=== PATIENT | female | born 1930 | race Caucasian/White ===

== ENCOUNTER 2016-12-27 16:03 | Inpatient (IN) | payer MEDICARE, OTHER ==
[~2016-12-27] VITALS: Ht 152.4 cm; Wt 63.5 kg
--- NOTE | ~2016-12-27 | ECHO ---
Transthoracic Echocardiography Report (TTE) Demographics Patient Name MINA CARDOSO Date of Study 12/29/2016 Patient Number [id number] Visit Number [id number] Date of 1930 Room Number G3201 [facility] [id number] Gender Female Number Age 86 year(s) Referring [place] Svetlana Melly Ski Tow Operator Cheri Rizzo RVT, Physician MARGO Watson Physician Interpreting Karie Holly MD Valve Machine Operator Physician Supervising Ordering Karie Holly MD, MD/MLP Physician Nurse Stress Grant Specialist Conclusions Contractility Score Summary Normal Left Ventricular contractility was noted. Summary The estimated left ventricular ejection fraction is 65-70%. Severe septal left ventricular hypertrophy with a sigmoid septum. Diastolic assessment reveals Grade I diastolic dysfunction. Mild LVOT gradient. The left atrium is moderately dilated. The interatrial septum appears aneurysmal. The right atrium is mildly dilated. Procedure Type of Study TTE procedure:2D Echocardiogram. Procedure Date Date: 12/29/2016 Start: 12:43 PM Study Location: Inpatient Portable Technical Quality: Adequate visualization Indications:Atrial fibrillation. Appropriate Use Criteria: 8 Patient Status: Routine Rhythm: NSR HR: 86 bpm BP: 111/58 mmHg M-Mode/2D Measurements LV Diastolic Dimension: 3.42 cm LV Systolic Dimension: 2.75 cm LV Septum Diastolic: 1.78 cm LV PW Diastolic: 0.95 cm AO Root Dimension: 2.4 cm Cardiac Output: 7.51 l/min AV Cusp Separation: 2 cm RV Diastolic Dimension: 2.97 cm LA volume: 56 ml LVOT: 1.9 cm RV Base: 2.8 cm LVOT VTI: 30.8 cm RV Mid: 2.86 cm LV Stroke volume: 87.28 ml TAPSE: 2.57 cm TDI-S': 19.3 cm/s Doppler Measurements AV Peak Velocity: 1.96 m/s MV Peak E-Wave: 0.83 m/s AV Peak Gradient: 15.37 mmHg MV Peak A-Wave: 1.06 m/s AV Mean Gradient: 11 mmHg MV E/A Ratio: 0.79 LVOT Peak Velocity: 1.84 m/s MV P1/2t: 87 msec TR Gradient:22.66 mmHg PV Peak Velocity: 1.36 m/s Estimated RAP:5 mmHg PV Peak Gradient: 7.4 mmHg Estimated RVSP: 28 mmHg Estimated PASP: 27.66 mmHg E' Septal Velocity: 0.06 m/s A' Septal Velocity: 0.15 m/s E' Lateral Velocity: 0.1 m/s A' Lateral Velocity: 0.26 m/s Findings Left Ventricle Severe septal left ventricular hypertrophy with a sigmoid septum. Diastolic assessment reveals Grade I diastolic dysfunction. Mild LVOT gradient. Right Ventricle Mild to moderately dilated right ventricle. Left Atrium Normal left atrial size. Right Atrium The right atrium is mild to moderately dilated. IVC measures 1.25 cm with inspiratory collapse. Mitral Valve Trivial mitral regurgitation by color Doppler. Mild calcification of the mitral valve. Aortic Valve The aortic valve is mildly sclerotic. Tricuspid Valve Normal tricuspid valve structure and function. Trivial tricuspid regurgitation by color Doppler. Pulmonic Valve Normal pulmonic valve structure and function. Pericardial Effusion No evidence of pericardial effusion. Miscellaneous Visualized portions of the aortic root and ascending aorta appear normal in size. Pleural Effusion No evidence of pleural effusion. Contractility Score LV regional wall motion:(0-Non visualized 1-Normal 2-Hypokinesis 3-Akinesis 4-Dyskinesis 5-Aneurysm) Signature dtt: Avni Tiwari (cardio) dtd: 12/29/16 1243 Physician Self Edit
--- NOTE | ~2016-12-27 | ER ---
PATIENT'S NAME: MINA CARDOSO [facility] AGE: 86 Y [address] ROOM: [place] [address] LOCATION: [facility] ADMIT DATE: 12/27/2016 ER/Outpatient Report DISCHARGE DATE: FAMILY PHYSICIAN: PHYSICIAN, UNKNOWN ATTENDING PHYSICIAN: Shirley QUINONEZ Time of Arrival: 1604 hours. Time of Evaluation: 1604 hours. CHIEF COMPLAINT: Fall. HISTORY OF PRESENT ILLNESS: The patient is an 86-year-old female, who presents to the emergency department today with a chief complaint of fall. She reports it was a ground level fall and hit back of her head against a table. She complains of some right leg pain; it is currently 5/10 in severity; at its max, it is 10/10 in severity; sharp; it is worse with movement. The patient denies any loss of consciousness. She denies any nausea or vomiting. No diarrhea or constipation. She is unsure exactly why she fell. PAST MEDICAL HISTORY: Osteopenia, dyslipidemia, hypertension, atrial fibrillation, arthritis, irritable bowel syndrome. PAST SURGICAL HISTORY: Bilateral total knee, hysterectomy, cholecystectomy, appendectomy, tonsillectomy, right rotator cuff, bilateral carpal tunnel, lysis of abdominal adhesions, 5 vaginal deliveries. SOCIAL HISTORY: The patient quit smoking in 2014. Smoked for 33 years. Drinks alcohol occasionally. Denies any illicit drug use. ALLERGIES: TO MORPHINE, OXYCODONE, AZITHROMYCIN, AND LORTAB. MEDICATIONS: 1. Aspirin 325 mg p.o. daily. 2. Baclofen 10 mg 1 tab 1 to 2 times daily as needed. 3. Calcium gluconate 500 mg once a day. 4. Diltiazem ER 120 mg daily. 5. Multaq 400 mg 2 times a day. 6. Meloxicam 7.5 mg 1 tab daily. 7. MiraLAX 1 cap daily. PATIENT'S NAME: MINA CARDOSO [facility] AGE: 86 Y [address] ROOM: [place] [address] LOCATION: [facility] ADMIT DATE: 12/27/2016 ER/Outpatient Report DISCHARGE DATE: FAMILY PHYSICIAN: PHYSICIAN, UNKNOWN ATTENDING PHYSICIAN: Shirley QUINONEZ 8. Ocuvite 1 daily. 9. Phenergan 25 mg 1/2 tab q.6 hours p.r.n. 10. Metamucil. 11. Evista 60 mg p.o. daily. 12. Tizanidine 2 mg p.o. t.i.d. p.r.n. 13. Tramadol 50 mg p.o. q.6 hours p.r.n. pain. PRIMARY CARE DOCTOR: In [place]. REVIEW OF SYSTEMS: All systems are reviewed by myself and are negative with the exception of those discussed in the HPI and past medical history. PHYSICAL EXAMINATION: VITAL SIGNS: Weight 65.5 kg, blood pressure 149/89, pulse 67, respiratory rate 16, temperature 98.8, oxygen saturation 100% on room air. GENERAL: The patient is an 86-year-old female, who appears stated age, in acute discomfort secondary to pain in her right leg. HEENT: Head: Normocephalic. Does have evidence of trauma with a 3.0 cm laceration to the right posterior occiput. It is gaping. Pupils are equal, round, and reactive to light. Extraocular motions are intact. Nares are patent bilaterally. TMs are clear. No hemotympanum. NECK: Supple. There is no midline tenderness to palpation. No step-offs or deformities. CARDIOVASCULAR: Regular rate and rhythm. No murmurs, rubs, or gallops. LUNGS: Clear to auscultation bilaterally. No wheezes, rales, or rhonchi. ABDOMEN: Soft, nontender, nondistended. No rebound, rigidity, or guarding. MUSCULOSKELETAL: The patient's right lower extremity is shortened and externally rotated. She is neurovascularly intact. 2/4 DP and PT pulses, which are equal bilaterally. There is no other bony tenderness to palpation noted. SKIN: The patient has a 3.0 cm laceration to the right posterior occiput. Otherwise, no rashes or lesions are noted. LABORATORY DATA AND X-RAYS: CT scan of the brain and C-spine are obtained. I have discussed results with the radiologist. There is no evidence of acute intracranial process. On the brain, there is atrophy noted. 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 EKG is obtained, is interpreted by myself at 1725 hours shows sinus rhythm with a rate of 72, normal axis, normal interval. No ST elevation, ST depression, T-wave inversions are noted. CBC is unremarkable. An x-ray of the femur, hip, and pelvis are obtained. It does show a distal right femur fracture at the distal third. It is closed. It is 100% displaced. PATIENT'S NAME: MINA CARDOSO [facility] AGE: 86 Y [address] ROOM: [place] [address] LOCATION: [facility] ADMIT DATE: 12/27/2016 ER/Outpatient Report DISCHARGE DATE: FAMILY PHYSICIAN: PHYSICIAN, UNKNOWN ATTENDING PHYSICIAN: Shirley QUINONEZ IMPRESSION: 1. Acute closed distal one-third femur fracture, oblique. 2. Ground-level fall. 3. 3.0 cm scalp laceration with staple repair. 4. Initial visit. EMERGENCY DEPARTMENT COURSE: The patient was brought back to the examination room. Seen and evaluated by myself. IV was established by EMS. Laboratory analysis and imaging are obtained as described above. The patient's wound is copiously irrigated with normal saline. It is evaluated. There are no evidence of foreign bodies. Staple repair is made. There is good cosmesis, good hemostasis. I have discussed results with the patient. I have recommended admission to the hospital for further evaluation, treatment, and management. I have contacted Dr. Jones, the patient's Orthopedic Surgery. He is out of town. I have contacted Dr. Acuña, who is on-call for Dr. Acuña. He does agree to accept the patient for further evaluation, treatment, and management. I have contacted the Hospitalist Service, Dr. Quinonez, who is on-call for the hospitalist service. He will preop as well. DISPOSITION: The patient is admitted under the care of Dr. Acuña as well as the Hospitalist Service in stable condition. DO EDILMA JOHNSON/deisi /[id number] d: 12/27/162327 t: 01/01/17 0843, OUTPATIENT REPORT
--- NOTE | ~2016-12-27 | CON ---
PATIENT'S NAME: MINA CEOLLO [facility] AGE: 86 Y [address] ROOM: [place] [address] LOCATION: [facility] ADMIT DATE: 12/27/2016 Consultation DISCHARGE DATE: FAMILY PHYSICIAN: PHYSICIAN, UNKNOWN ATTENDING PHYSICIAN: Shirley ROE DATE OF CONSULTATION: 12/27/2016 REFERRING PHYSICIAN: ROGELIO TRAN MD CHIEF COMPLAINT: Right thigh pain. HISTORY OF PRESENT ILLNESS: Ms. Coello is a pleasant 86-year-old female, who sustained an unwitnessed fall today. She complained of immediate right thigh pain. She is unable to bear weight. She contacted the emergency medical services and brought to the emergency room. She was diagnosed with a right distal third femur fracture. I was consulted for definitive orthopedic care. Currently, the patient reports aggravating factor as movement of the hip, range of motion, or attempted weightbearing. Alleviating factors include rest, ice, and immobilization. The patient reports a previous right total knee replacement by Dr. Jones in 2009, which has done well. She currently denies any constitutional symptoms such as fever, chills, or night sweats. She also denies any dizziness, chest pain, shortness of breath, blurred vision, nausea, vomiting, or diarrhea. REVIEW OF SYSTEMS: A 10-point review of systems was as otherwise mentioned above in the HPI. The patient's issue is musculoskeletal in nature. Her pain is at the right lower extremity. PAST MEDICAL HISTORY: Hypertension, osteoarthritis, and atrial fibrillation. PAST SURGICAL HISTORY: Includes a right total knee replacement by Dr. Jones in 2009. ALLERGIES: INCLUDE LORTAB, MORPHINE, OXYCODONE, AND AZITHROMYCIN. MEDICATIONS: Include: 1. Aspirin. 2. Baclofen. 3. Calcium gluconate. PATIENT'S NAME: MINA COELLO [facility] AGE: 86 Y [address] ROOM: [place] [address] LOCATION: [facility] ADMIT DATE: 12/27/2016 Consultation DISCHARGE DATE: FAMILY PHYSICIAN: PHYSICIAN, UNKNOWN ATTENDING PHYSICIAN: Shirley ROE 4. Diltiazem. 5. Dronedarone. 6. Meloxicam. 7. MiraLAX. 8. Ocuvite. 9. Phenergan. 10. Psyllium. 11. Raloxifene. 12. Tizanidine. 13. Tramadol. SOCIAL HISTORY: The patient has a history of smoking, but quit in 2014. She reports occasional alcohol use. Denies any illicit drug use. FAMILY HISTORY: Noncontributory. PHYSICAL EXAMINATION: GENERAL: The patient is awake, alert, and oriented x3. She is visibly in distraught because her thigh is in pain. She is actively conversing with me at the bedside. HEENT: Normocephalic and atraumatic. Extraocular movements are intact. PERRLA. Moist mucous membranes. Oropharyngeal airway is clear. NECK: Supple. Trachea is in the midline. CARDIOVASCULAR: Regular rate and rhythm. CHEST: Normal symmetric respirations observed bilaterally. ABDOMEN: Soft, nontender, and nondistended. PELVIS: Stable. VITAL SIGNS: Include a weight of 65.5 kg, blood pressure 149/89, pulse is 67, respiratory rate of 16, temperature 98.8, and 100% on room air. MUSCULOSKELETAL: Right lower extremity: Focal examination of the patient's right lower extremity reveals that she is grossly neurologically intact distally. Compartments of thigh, leg, and foot are soft. There is tenderness to palpation at the distal aspect of the right femur. There is a well-healed surgical incision on the anterior aspect of the knee consistent with previous knee replacement. There are palpable dorsalis pedal and posterior tibial pulses. There is good capillary refill in the toes. The patient is actively able to dorsiflex and plantar flex the ankle, though this does elicit some pain and spasms on the thigh. IMAGING: Plain radiographs of the right femur reveal evidence of a distal one-third femur fracture with 100% displacement and shortening. PATIENT'S NAME: MINA COELLO [facility] AGE: 86 Y [address] ROOM: [place] [address] LOCATION: [facility] ADMIT DATE: 12/27/2016 Consultation DISCHARGE DATE: FAMILY PHYSICIAN: PHYSICIAN, UNKNOWN ATTENDING PHYSICIAN: Shirley ROE LABORATORY VALUES: Include hemoglobin of 12.4, hematocrit of 37.2, white blood cell count of 7.5. Chemistry panel includes a sodium of 142, potassium 4.1, chloride of 109, CO2 of 26, anion gap of 11.1, glucose 128, calcium 8.7, BUN of 28, creatinine of 0.9, pre-albumin is 21. IMPRESSION: Right displaced and shortened distal one-third femur fracture. PLAN: I had a long discussion with the patient in the presence of her son regarding her right femur. I am recommending a right femoral intramedullary nailing procedure to stabilize the fracture. I discussed the risks, benefits, and alternatives pursuing surgical intervention with the patient in detail. I discussed the risks of anesthesia, infection, bleeding, and/or injury to neurovascular structures. They expressed understanding of this. Informed consent was obtained. We will plan for surgery as early as this evening. The patient is currently n.p.o. She will be bedrest for now. A Santos catheter has been placed. The hospitalist has been consulted for management of the patient's concomitant medical comorbidities. She is cleared from their standpoint. We will plan for surgery as soon as possible. MD JESSI FRAGOSO/modl /[id number] d: 12/28/16 0028 t: 12/28/16 0851, CONSULTATION REPORT
--- NOTE | ~2016-12-27 | CON ---
PATIENT'S NAME: MINA CARDOSO [facility] AGE: 86 Y [address] ROOM: [address] [address] LOCATION: [facility] ADMIT DATE: 12/27/2016 Consultation DISCHARGE DATE: FAMILY PHYSICIAN: PHYSICIAN, UNKNOWN ATTENDING PHYSICIAN: Shirley ROE REFERRING PHYSICIAN: ROGELIO TRAN MD IDENTIFYING INFORMATION: The patient is an 86-year-old lady from [place] who I was asked to see in consultation to assume primary care responsibilities for when she goes to [facility], scheduled for Sunday01/02/2017. CHIEF COMPLAINT: Fall with right distal femur fracture. HISTORY OF PRESENT ILLNESS: The patient is an 86-year-old who was at home and just walking in her house when she felt her right leg gave way and fell to the ground with severe pain in the right femur. She did hit the back of her head. Suffered a laceration. She utilized [employer] and was brought to the emergency room. She had the head laceration sutured. She subsequently underwent intramedullary nailing of the right femur on 12/27/[address] Tran. She has had a relatively uncomplicated recovery course in the hospital and scheduled to go to [facility] on Sunday. She did live at home and was able to perform all of her own ADLs prior to this event occurring. She is on several medications, some of them a little bit concerning and we talked about that. She also is wearing a neck brace and when asked about that she said that she has been wearing that for over a month, just to help with arthritis of her neck. I explained that is probably going to just make her neck weaker and she will plan on removing that and not using that and only use a soft collar as needed for a little while to transition out of that. PAST MEDICAL HISTORY: ILLNESSES: 1. Osteoporosis. 2. Paroxysmal atrial fibrillation, followed by Dr. Castillo. 3. Osteoarthritis, status post replacement of both knees. 4. Hypertension. 5. History of irritable bowel syndrome. SURGERIES: 1. Bilateral total knee arthroplasty. 2. Hysterectomy. 3. Cholecystectomy. 4. Appendectomy. PATIENT'S NAME: MINA CARDOSO [facility] AGE: 86 Y [address] ROOM: [address] [place], [place] [address] LOCATION: [facility] [place] ADMIT DATE: 12/27/2016 Consultation DISCHARGE DATE: FAMILY PHYSICIAN: PHYSICIAN, UNKNOWN ATTENDING PHYSICIAN: Sihrley ROE 5. Right rotator cuff repair. 6. Bilateral carpal tunnel syndrome. 7. Lysis of abdominal adhesions. 8. Left femur intramedullary lawrence for fracture 3 or 4 years ago. ALLERGIES: TO MORPHINE, OXYCODONE, AZITHROMYCIN, AND LORTAB. MEDICATIONS: On admission, 1. Aspirin 325 p.o. daily. 2. Baclofen 10 mg one tab 1-2 times a day as well as tizanidine 2 mg t.i.d. p.r.n., she says she took both of these on a daily basis. 3. Calcium 500 daily. 4. Diltiazem ER 120 mg daily. 5. Multaq 400 mg b.i.d. 6. Meloxicam 7.5 one tab daily. 7. MiraLAX one capsule daily. 8. Ocuvite one tab daily. 9. Phenergan 25 mg half a tab every 6 hours p.r.n. 10. Metamucil daily. 11. Evista 60 mg daily. 12. Tramadol 50 mg q.6 hours p.r.n. SOCIAL HISTORY: She is . She lives in [place] on a farm. She has been able to do all of her own ADLs prior to this injury and lives independently without any concerns. She quit smoking in 2014, has smoked for 33 years, half pack a day on average for approximately 16-pack year smoking history. REVIEW OF SYSTEMS: : No significant problems with incontinence. GI: No incontinence, just some constipation, may be related to the use of her muscle relaxants. She takes MiraLAX for that. PSYCH: No problems with depression. NEUROLOGIC: No problems with headaches and she is recovering well with a head laceration. No problems with dementia that she or her family have noticed. PULMONARY: She denies any problem with chronic cough or wheezing despite the smoking history. SKIN: Significant for laceration to the scalp and related to her right hip surgery. Otherwise review of systems negative. PERTINENT LABS: Hemoglobin is 9.5 when she came in, it dropped to a low of 6.1 and she is 7.5 when last checked. Has received some blood transfusions. Renal function PATIENT'S NAME: MINA CARDOSO [facility] AGE: 86 Y [address] ROOM: [address] [place] [address] LOCATION: [facility] [place] ADMIT DATE: 12/27/2016 Consultation DISCHARGE DATE: FAMILY PHYSICIAN: PHYSICIAN, UNKNOWN ATTENDING PHYSICIAN: Shirley ROE shows creatinine 0.6. Electrolytes normal. GFR greater than 60. Blood sugar was 93. PHYSICAL EXAMINATION: GENERAL: She is alert, oriented, and very engaging in conversation. She is wearing a neck brace, but took it off during our exam. HEAD: Healing scalp wound. EYES: PERRLA. EOMI. Sclerae nonicteric. EARS, NOSE, AND THROAT: Unremarkable. NECK: Just mild tenderness on posterior neck. She relates to arthritis. Normal carotid upstrokes. LUNGS: Diminished but otherwise clear. Normal effort. Heart is irregularly irregular at this time, but rate is controlled in the 80s. ABDOMEN: Soft, nontender. No appreciable masses. EXTREMITIES: Dressing of right hip clean and dry. Left leg unremarkable. No significant edema. NEUROLOGIC: Normal tone. No cogwheeling. ASSESSMENT/PLAN: 1. An 86-year-old, cognitively intact, very pleasant lady, who suffered a right distal femur fracture, status post intramedullary nailing on 12/27/2016. 2. She will be touch toe weightbearing at the start and then gradually increased per orthopedic recommendations and will need assistance with ADLs, it sounds like for at least 4-6 months. 3. Paroxysmal atrial fibrillation, managed by Dr. Castillo, currently not on anticoagulation other than aspirin. 4. Osteoporosis, is on Evista, but that can be stopped and we may need to talk about a more aggressive treatment. She says she has been on alendronate in the past. We will get those records eventually and then figure out the best appropriate treatment for osteoporosis. 5. Polypharmacy with concerning medications. We strongly recommend to stop tizanidine, baclofen, and meloxicam for her at her age and she is accepting of this. PLAN: She will assume primary care responsibilities when she goes to [place]. MD YSABEL BELLO/deisi PATIENT'S NAME: MINA CARDOSO [facility] AGE: 86 Y [address] ROOM: [place] [address] LOCATION: [facility] [place] ADMIT DATE: 12/27/2016 Consultation DISCHARGE DATE: FAMILY PHYSICIAN: PHYSICIAN, UNKNOWN ATTENDING PHYSICIAN: Shirley ROE /[id number] d: 12/31/16 1737 t: 01/05/17 1319, CONSULTATION REPORT
--- NOTE | ~2016-12-27 | OR ---
PATIENT'S NAME: MINA COELLO [facility] AGE: 86 Y [address] ROOM: [place] [address] LOCATION: [facility] ADMIT DATE: 12/27/2016 OR/Procedure Report DISCHARGE DATE: FAMILY PHYSICIAN: PHYSICIAN, UNKNOWN ATTENDING PHYSICIAN: Shirlye ROE SURGEON: Rogelio Tran MD CHANNELING MACHINE OPERATOR: None. DATE OF PROCEDURE: 12/27/2016 POSTOPERATIVE DIAGNOSIS: Right distal 1/3rd comminuted and displaced distal femur fracture. POSTOPERATIVE DIAGNOSIS: Right distal 1/3rd comminuted and displaced distal femur fracture. PROCEDURE: Right long femoral intramedullary nailing of distal 1/3rd femoral shaft fracture. ANESTHESIA: General endotracheal anesthesia. FLUIDS: See Anesthesia report. ESTIMATED BLOOD LOSS: 800 mL. SPECIMEN: None. COMPLICATIONS: None. TOURNIQUET: Stable in PACU. COUNTS: All counts correct. IMPLANTS: Synthes TFN-A 400 mm long 12-mm diameter femoral nail with proximal lag screw and 2 distal interlocking screws. INDICATIONS: Ms. Coello is a pleasant 86-year-old female who underwent the noted procedures above. The risks, benefits, and alternatives of pursuing surgical intervention were discussed with the patient in detail. She elected to proceed with surgery. Her son was also in agreement with this. I marked the right lower extremity indicating the correct surgical site. Anesthesia was consulted for their perioperative evaluation of the patient. The patient taken from the holding area to the operating room. A time-out was performed. General endotracheal anesthesia was administered. Antibiotics were administered for perioperative prophylaxis. PATIENT'S NAME: MINA COELLO [facility] AGE: 86 Y [address] ROOM: [place] [id number] LOCATION: [facility] ADMIT DATE: 12/27/2016 OR/Procedure Report DISCHARGE DATE: FAMILY PHYSICIAN: PHYSICIAN, UNKNOWN ATTENDING PHYSICIAN: Shirley ROE The patient was positioned on the [place] table with the leg in traction. A final time-out was performed. I introduced intraoperative fluoroscopy. I identified the fracture. I began at just proximal level of the greater trochanter. I placed a pin. I later confirmed with the fluoroscope that I was in the center-center position of the greater trochanter. I then made an incision proximal to the pin. I used my opening reamer to open up the femoral canal. At the fracture site, I made an incision to perform an open reduction and temporary internal fixation in order to pass the distal ball-tip guidewire. Once the guidewires passed, I confirmed its position fluoroscopically. The position was near anatomic. There was a total knee in place, which obscured the view of note. I then reamed up to a size 13.5 for a size 12 nail. I placed the femoral nail. I confirmed its position fluoroscopically. I began with 2 distal interlocking screws in the nail to achieve distal fixation at the fracture site. Once I achieved distal fixation, I attached a slap hammer to the proximal portion of the nail. I backslapped on the nail to achieve compression at the fracture site, which I was able to do. I then placed my lag screw proximally into the femoral neck to provide protection both to the femoral neck and to achieve proximal fixation. Final fluoroscopic images were taken revealing a successful open reduction and femoral intramedullary nailing of a comminuted distal 1/3rd femur fracture. The surgical incisions were copiously irrigated with normal sterile saline solution and closed in layers. Sterile Mepilex dressings were placed on the incisions. The patient was then transferred from the [place] table onto the hospital bed and extubated. She was brought to recovery room in stable condition. There were no intraoperative complications noted. IMPRESSION: The patient is status post the noted procedures above. PLAN: The patient will be toe-touch weightbearing on the right lower extremity. She will be encouraged to rest, ice, and elevate the leg going forward. A Mepilex dressing will be p.r.n. Postoperative antibiotics will be per routine. Physical Therapy and Occupational Therapy will be consulted for early ambulation and prevention of deconditioning. The hospitalist will manage the patient's concomitant medical comorbidities. DVT prophylaxis will be in the form of Lovenox. I will continue to monitor the patient closely in PATIENT'S NAME: MINA COELLO [facility] AGE: 86 Y [address] ROOM: [place] [address] LOCATION: [facility] ADMIT DATE: 12/27/2016 OR/Procedure Report DISCHARGE DATE: FAMILY PHYSICIAN: PHYSICIAN, UNKNOWN ATTENDING PHYSICIAN: Shirley ROE the postoperative period. ROGELIO C MD JESSI TRAN/modl /[id number] d: 12/28/16 0147 t: 12/28/16 0856, OPERATIVE SUMMARY
--- NOTE | ~2016-12-27 | DS ---
PATIENT'S NAME: MINA CARDOSO [facility] AGE: 86 Y [address] ROOM: [address] [address] LOCATION: [facility] ADMIT DATE: 12/27/2016 Discharge Summary DISCHARGE DATE: 01/02/2017 FAMILY PHYSICIAN: Physician, Unknown ATTENDING PHYSICIAN: Devi Watson PRIMARY DIAGNOSES: 1. Right femur fracture. 2. Acute blood loss anemia. 3. Paroxysmal atrial fibrillation with rapid ventricular response. 4. Leukocytosis. 5. Orthostatic hypotension. 6. Chronic conditions include essential hypertension and osteoarthritis. PRINCIPAL PROCEDURE: Done for the patient includes intramedullary nailing of the right femur and also transfusion to the patient with 4 units of packed red blood cells, LABORATORY DATA: On admission, WBC was 7.5, highest level obtained was 20.2, prior to discharge was 10.7; H and H on admission were 12.4 and 37.2, lowest level obtained was 6.1 and 18.4 prior to discharge was 8.2 and 26.6; platelet on admission was 262, was stable throughout the hospital stay; prior to discharge was 200. Sodium on admission was also 142, was stable throughout the hospital stay, prior to discharge was 140; potassium on admission was 4.1, was also stable throughout the hospital stay, prior to discharge was 3.8; bicarb was stable throughout the hospital stay at 24; creatinine was stable throughout the hospital stay, 0.9 upon admission, prior to discharge was 0.6. UA, leukocytes negative, nitrite negative, wbc 2 to 5, bacteria moderate. RADIOLOGY DATA: Chest x-ray is reported as cardiac enlargement. No vascular congestion or confluent parenchymal infiltrate identified on supine frontal chest study. X-ray of the pelvis is reported as no acute bone fracture identified at the pelvis or hips. Metallic hardware is in place at the proximal left femur, degenerative changes at the hips, bone osteopenia and vascular calcifications noted. CT of the head without contrast, no acute hemorrhage or midline shift. Generalized atrophic changes. No skull fracture identified on the bone- windowed images. CT cervical, linear lucency across the base of the odontoid with slight posterior displacement and posterior angulation of the odontoid relative to the C2 body. There is bone sclerosis and cyst formation at the odontoid with PATIENT'S NAME: MINA CARDOSO [facility] AGE: 86 Y [address] ROOM: [id number] [place], [place] [address] LOCATION: [facility] ADMIT DATE: 12/27/2016 Discharge Summary DISCHARGE DATE: 01/02/2017 FAMILY PHYSICIAN: Physician, Unknown ATTENDING PHYSICIAN: Devi Watson fusion between anterior arch of C1 and the body of C2, overall appearance favors old injury. HOSPITAL COURSE: For history of present illness, please take a look at the H and P, which was done by Dr. Quinonez. The patient was admitted to the Neurotrauma Unit. By the next day, she was taken into the OR for the intramedullary nailing of her fractured right femur. Procedure was well tolerated by the patient without intra or postop complication. Postop, the patient did develop some leukocytosis, which was thought to be reactive; however, this improved with her hospital stay and had returned to normal prior to discharge. Postop, she did also develop some postop acute blood loss anemia, which was attributed to be secondary to the femur fracture. So, she was transfused with a total of 4 units of PRBC during her hospital stay. She did also develop some chronic atrial fibrillation with rapid ventricular response. For this, we did get a Cardiology consult, and we were wondering reason why the patient was not on any anticoagulation for her chronic atrial fibrillation. After the cardiology team had visited with the patient, she reported that she would rather discuss with the aeronautical research engineer, Dr. Gilma Richards, as to whether to be on anticoagulation or not. Thereafter, for the chronic atrial fibrillation with RVR, she was put on Cardizem drip, which was weaned off, and her rate medications were also modified by the Cardiology team, and thereafter, she would slip back into atrial fibrillation, however, rate controlled. On the morning of discharge, she did complain of some dizziness and nausea when she was put up to stand, and orthostatic vital signs, which were obtained were positive, so she was bolused with 500 mL of normal saline with appropriate response, and thereafter, her repeat orthostatic vital signs were stable, and she was asymptomatic, and so she was discharged to the [facility]. MEDICATIONS ON DISCHARGE: 1. Aspirin 325 mg p.o. daily. 2. Calcium 500 mg p.o. daily. 3. Cardizem 120 mg p.o. daily. 4. Multaq 400 mg p.o. twice daily. 5. MiraLAX 17 g p.o. daily. 6. Lovenox 40 mg subcu total of 30 days DVT prophylaxis. 7. Baclofen 10 mg p.o. twice daily p.r.n. 8. Psyllium natural fiber 3 capsules p.o. daily. 9. Phenergan 12.5 mg p.o. q.6 hours p.r.n. 10. Milk of magnesia 30 mL p.o. daily p.r.n. 11. Ocuvite 1 tablet p.o. daily. 12. Evista 60 mg p.o. daily. 13. Tizanidine 2 mg p.o. 3 times daily p.r.n. Discharge time spent on this patient is approximately 35 minutes, which included coordination, discharge planning with the respiratory care faculty team. PATIENT'S NAME: MINA CARDOSO [facility] AGE: 86 Y [address] ROOM: [place] [address] LOCATION: [facility] ADMIT DATE: 12/27/2016 Discharge Summary DISCHARGE DATE: 01/02/2017 FAMILY PHYSICIAN: Physician, Unknown ATTENDING PHYSICIAN: Devi Watson HOLLY BECKMAN MD ODO/modl /[id number] d: 01/03/17 0126 t: 01/07/17 1619, DISCHARGE SUMMARY
--- NOTE | ~2016-12-27 | HP ---
PATIENT'S NAME: MINA CARDOSO [facility] AGE: 86 Y [address] ROOM: [address] [address] LOCATION: [facility] ADMIT DATE: 12/27/2016 History & Physical DISCHARGE DATE: FAMILY PHYSICIAN: PHYSICIAN, UNKNOWN ATTENDING PHYSICIAN: Shirley ROE DATE OF SERVICE: CHIEF COMPLAINT: Right femur fracture. HISTORY OF PRESENT ILLNESS: The patient is an 86-year-old female with a past medical history of osteoarthritis and AFib who presents here with right femur fracture after a fall. The patient reports that she was on the phone when she had a mechanical fall. The patient was able to call [facility] and then was brought in by EMS. In evaluation in the emergency department, the patient was found to have right humeral fracture. The patient reports that she has had hip fracture and femur fracture in the past and her last surgery was done 3 years ago and has not had any complication or surgery in the past. The patient also had laceration of the head and has had issac done in the ED. The patient currently denies chest pain, shortness of breath, abdominal pain, nausea, vomiting, fever, and chills. The patient's only complaint is right lower extremity pain. The patient lives by herself and is fairly active and is able to do her activities of daily life without cardiac limitation. PAST MEDICAL HISTORY: AFib, osteoarthritis. PAST SURGICAL HISTORY: Knee surgery, hip surgery, and femur surgery in the past. FAMILY HISTORY: Son has diabetes mellitus type 2. SOCIAL HISTORY: The patient lives by herself. She has a history of smoking, but currently does not smoke. MEDICATIONS: See MAR. REVIEW OF SYSTEMS: All systems have been reviewed and are negative except for what I mentioned in the HPI. PATIENT'S NAME: MINA CARDOSO [facility] AGE: 86 Y [address] ROOM: [address] [address] LOC[facility]: [facility] ADMIT DATE: 12/27/2016 History & Physical DISCHARGE DATE: FAMILY PHYSICIAN: PHYSICIAN, UNKNOWN ATTENDING PHYSICIAN: Shirley ROE PHYSICAL EXAMINATION: VITAL SIGNS: Temperature 98.9, blood pressure 149/89, heart rate 67, respiratory rate 16, and satting 100% on room air. GENERAL APPEARANCE: The patient is in mild distress due to right lower extremity pain. HEAD: The patient has laceration on the back and has issac. EYES: Extraocular muscle intact. No discharge. NOSE: No nasal discharge. EARS: No ear discharge MOUTH: Moist oral cavity. HEART: Irregularly irregular. No murmurs, rubs, or gallops. CHEST: Clear to auscultation bilaterally. ABDOMEN: Soft, nontender, nondistended. Bowel sounds present. EXTREMITIES: Shortened right lower extremity. Distal pulses present. No edema present. SKIN: Warm to touch. DESK MONITOR: The patient is alert and oriented. Motor and sensory grossly intact. LABORATORY DATA: 1. Sodium 142, potassium of 4.1, chloride 109, CO2 of 26, blood glucose 128, and creatinine 0.9. White blood cell count of 7.5, hemoglobin 12.4, and platelets of 262. 2. EKG shows atrial fibrillation with a rate of 67. 3. CT head shows no acute hemorrhage or midline shift. No skull fractures noted. 4. CT chest, not read yet, but appears shows no cardiopulmonary process. 5. CT cervical shows old injury at the base of the odontoid, reinjury at site of old fractures also differential per Radiology report; however, the patient reports that she has had a neck fracture in the past. ASSESSMENT AND PLAN: 1. right femur fracture. The patient is an 86-year-old with history of osteoarthritis and atrial fibrillation who presents here with mechanical fall with right femur fracture. The patient has greater than 4 METs, the patient is very active at home, and does not have any limitations in terms of cardiac and pulmonary with activity. The patient denies any shortness of breath, orthopnea, lower extremity edema, and history of cardiac disease. The patient has a moderate risk factor of surgery. However, there are no further investigation needed that can change the course of the surgery. The patient is stable for the surgery. The patient clearly understands the risk factor. The patient accepts the risk factors and is willing to have the surgery due to continuous pain that she is suffering currently. The patient is scheduled for surgery this p.m. Discussed assessment with the patient and Dr. Acuña. PATIENT'S NAME: MINA CARDOSO [facility] AGE: 86 Y [address] ROOM: [address] [place] [address] LOCATION: [facility] ADMIT DATE: 12/27/2016 History & Physical DISCHARGE DATE: FAMILY PHYSICIAN: PHYSICIAN, UNKNOWN ATTENDING PHYSICIAN: Shirley ROE 2. Atrial fibrillation on rate control on Multaq and Cardizem and to continue Multaq and Cardizem. The patient denies also history of being on anticoagulation. She is currently on aspirin. We will continue aspirin for now and to have discussion during this stay about anticoagulation. 3. Pain management. Pain should somewhat resolve after surgery. Pain management per Orthopedics. Greater than 60 minutes spent on the patient care, greater than 50% of that spent in direct patient consultation, and consultation with Dr. Acuña. We will admit the patient as inpatient and the patient is stable for surgery. The patient is scheduled to have surgery this evening. We will follow the patient after surgery. MD ENRICO CARPENTER/moderick /[id number] D: [id number] T: [id number] HISTORY & PHYSICAL
[2016-12-27 17:13] LABS: BASOPHIL % 0.3 %; EOSINOPHIL # 0.1 K/uL (0.0-0.5); EOSINOPHIL % 1.3 %; HEMATOCRIT 37.2 % (30.0-46.0); HEMOGLOBIN 12.4 g/dL (10.0-15.0); IMMATURE GRANULOCYTE % 0.3 %; LYMPHOCYTE # 1.4 K/uL (0.8-4.0); LYMPHOCYTE % 18.3 %; MCHC 33.3 gm/dL (32.0-36.5); MCV 96.1 fl (83.0-98.0); MONOCYTE # 0.8 K/uL (0.0-1.0); MONOCYTE % 10.7 %; MPV 9.6 fl (9.4-12.4); NEUTROPHIL # (ANC) 5.2 K/uL (1.8-7.8); NEUTROPHIL % 69.1 %; NRBC % 0 /100WBC (0-0.00); PLATELET COUNT 262 K/uL (150-450); RDW-CV 12.7 % (11.9-14.6); WBC 7.5 K/uL (4.0-11.0)
[2016-12-27 17:14] LABS: RBC 3.87 M/uL (3.00-5.00)
[2016-12-27 17:25] LABS: INR - (THERAPEUTIC) 0.96 (0.92-1.07); PROTIME 10.1 SECONDS (9.8-11.4); PTT 24 SECONDS (25-32)
[2016-12-27 17:31] LABS: ALBUMIN 3.7 gm/dL (3.5-5.0); ANION GAP 11.1 (10.0-19.0); CALCIUM 8.7 mg/dL (8.5-10.5); CREATININE 0.9 mg/dL (0.5-1.1); PHOSPHORUS 3.1 mg/dL (2.5-4.9); POTASSIUM 4.1 mMol/L (3.7-5.1)
[2016-12-27 18:25] LABS: BILIRUBIN URINE NEGATIVE (NEGATIVE); BLOOD URINE 25 /UL (NEGATIVE); COLOR URINE YELLOW (YELLOW); GLUCOSE URINE NEGATIVE (NEGATIVE); KETONE URINE NEGATIVE (NEGATIVE); LEUKOCYTES URINE NEGATIVE /UL (NEGATIVE); NITRITE URINE NEGATIVE (NEGATIVE); PROTEIN URINE NEGATIVE (NEGATIVE); TURBIDITY URINE CLEAR (CLEAR); UROBILINOGEN URINE NORMAL (NORMAL)
[2016-12-27 18:46] LABS: AMORPHOUS URINE 3+ (NEGATIVE); BACTERIA URINE MODERATE (NEGATIVE); MUCUS URINE 1+ (NEGATIVE)
[2016-12-27] MEDS ORDERED: CALCIUM GLUC500 MG PO (19:37)
[2016-12-27] MEDS ORDERED: ASPIRIN325 MG PO (19:37)
[2016-12-27] MEDS ORDERED: LIORESAL10 MG PO (19:37)
[2016-12-27] MEDS ORDERED: DILTIAZEM ER120 M2 PO (19:38)
[2016-12-27] MEDS ORDERED: MELOXICAM7.5 MG PO (19:39)
[2016-12-27] MEDS ORDERED: MIRALAX PO527 GM/BOT PO (19:39)
[2016-12-27] MEDS ORDERED: MULTAQ400 MG PO (19:39)
[2016-12-27] MEDS ORDERED: OCUVITE WITH L1 EACH PO (19:40)
[2016-12-27] MEDS ORDERED: PHENERGAN25 M1 PO (19:40)
[2016-12-27] MEDS ORDERED: NATURAL FIBER0.52 GM PO (19:41)
[2016-12-27] MEDS ORDERED: EVISTA60 MG PO (19:41)
[2016-12-27] MEDS ORDERED: TRAMADOL HCL50 MG PO (19:42)
[2016-12-27] MEDS ORDERED: TIZANIDINE HCL2 MG PO (19:42)
--- NOTE | 2016-12-28 02:03 | NUR ---
Patient arrived on floor from OR following a R) hip nailing. Patient accompainied to the floor and was able to assist with data base 1 patient is alert and oriented x3 just drowsy from surgery. Patient fell at home. She was able to use her life line to call for help. The patient hit the back of her head when she fell. CT of head was negative. [place] placed to laceration of head on arrival to ER.
--- NOTE | 2016-12-28 02:46 | NUR ---
Significant Event: A&Ox3. Denies N&T. Had right femoral nailing done during the night came up to floor at 2335. Neuro checks to be done on RLE Q2HR for 24hrs. Pedal pulse slightly thready to R) able to wiggle toes without complications. Pain under control with tordol. Has lilli meplex drsg with lilli wrap and knee immobilizer to R) leg. Drsg C/D/I. On tele SR. VSS. Did have temp of 95 in PACU. SBP in low 100 to upper 90s. One unit of blood given in OR due to EBL. On 4L of O2 sats in low 90s. Lungs C&D. Regular diet. Pt was very nautious after surgery has not had anything but water since. IV to L) AC running D5 1/2 with 20meq of KCL at 125ml/hr can SL when taking fluids well. Follow up:
[2016-12-28 04:28] LABS: HEMOGLOBIN 9.5 g/dL (10.0-15.0); MCV 95.4 fl (83.0-98.0); MPV 9.9 fl (9.4-12.4); RBC 3.06 M/uL (3.00-5.00)
[2016-12-28 04:29] LABS: HEMATOCRIT 29.2 % (30.0-46.0); MCHC 32.5 gm/dL (32.0-36.5); PLATELET COUNT 198 K/uL (150-450); RDW-CV 15.5 % (11.9-14.6); WBC 20.2 K/uL (4.0-11.0)
[2016-12-28 05:26] LABS: ABSOLUTE NEUTROPHIL CT (ANC) 18.6 K/uL (1.8-7.8); BANDED NEUTROPHIL # 1.2 K/uL (0.0-0.1); BANDED NEUTROPHILS % 6 %; LYMPHOCYTE # 0.8 K/uL (0.8-4.0); LYMPHOCYTE % 4 %; MONOCYTE # 0.8 K/uL (0.0-1.0); SEGMENTED NEUTROPHIL # 17.4 K/uL (1.8-7.8); SEGMENTED NEUTROPHIL % 86 %
--- NOTE | 2016-12-28 13:48 | NUR ---
Introduced self and CM role to Angélica and her son, Smooth who was at bedside. Angélica tells me that prior to this, she was living at home, alone, in [place] and upon discharge, she anticipates that she will need some skilled care. Prior to coming into [facility], she was doing all of her own medications at home and getting around without any assistive devices. She sees' GARY Gonzalez at the [facility] and gets her medications filled through the local pharmacy, [facility]. Angélica has been at [facility] in [place] before for a prior post hospitalization stay and would like to go back there if they would accept her. She currently has a son that lives there as a prison resident. I let her and son know that I would make a referral to Reina at [facility] and then see if/when they could accept. I did talk with Angélica and son about the Medicare 3 night qualifying stay criteria vs going to the SNF on private pay. At this time, if she is cleared for dismissal tomorrow by and the hospitalists, she will only have 2 inpt. nights, thus making her self pay at the SNF. IF she is not ready tomorrow for dismissal, then we would look at early next week before she would go to the SNF since it is a Sunday tomorrow and she would then have her 3 overnight stays needed to qualify for SNF being covered by Medicare and her supplement. I let her and her son know it would depend on what doctors felt was needed, but to be preparing for the fact that she might be ready to go tomorrow and it would be a self pay situation. Told them once I had more direction from doctors and when I knew what Reina had open for beds at the SNF, I would update them and we would go from there. Both were fine with this plan. I gathered information, faxed it over to Reina at the [facility] and also left her a VM as well re:the referral. Have not heard back from her yet on if/when they could take. Will try to review her chart later to see if more MDs have rounded on her to see if they have given clear indication on when she would be ready to go to SNF. Plan to update her and son later today or early tomorrow. Cherelle' cell #[phone]. CM to continue to follow and assist.
--- NOTE | 2016-12-28 20:16 | NUR ---
Significant Event: PT ALERT AND ORIENTED X3. CSM INTACT TO R)LEG/FOOT. ABLE TO WIGGLE TOES TO R)FOOT. IMMOBILIZER INTACT TO R)LEG; MEPILEX DRESSING CHANGED X1 DUE TO BEING SATURATED; NO DRAINAGE NOTED SINCE DRESSING WAS CHANGED AT 1300. TOE-TOUCH WEIGHT BEARING TO R)LEG. TRANSFERS WITH 2-ASSIST/PIVOT/GAIT/BELT/WALKER. SAT IN THE CHAIR FOR SEVERAL HOURS TODAY. VITAL SIGNS STABLE; ON ROOM AIR. DID HAVE AN EMESIS AFTER LUNCH AND THREW UP HER SOUP; PO PHENERGAN GIVEN AT 1317, WITH RELIEF. PRN ULTRAM HAS BEEN HELPING WITH PAIN. TAKES MEDICATIONS WHOLE WITH WATER. GUANAKO D/C'D AT 1745. L)CALF PUMP ON. IV TO L)AC SALINE LOCKED; DRINKING PO FLUIDS WELL. NO BM THIS SHIFT. Follow up: CONTINUE TO MONITOR; PLACEMENT?
[2016-12-29 05:50] LABS: BASOPHIL % 0.1 %; IMMATURE GRANULOCYTE # 0.1 K/uL (0.0-0.3); IMMATURE GRANULOCYTE % 0.8 %; LYMPHOCYTE # 1.2 K/uL (0.8-4.0); MCV 94.4 fl (83.0-98.0); MONOCYTE # 1.6 K/uL (0.0-1.0); MPV 10.2 fl (9.4-12.4); NEUTROPHIL # (ANC) 10.2 K/uL (1.8-7.8); NEUTROPHIL % 78.1 %; NRBC % 0 /100WBC (0-0.00); RDW-CV 15.7 % (11.9-14.6); WBC 13.1 K/uL (4.0-11.0)
[2016-12-29 05:57] LABS: HEMATOCRIT 18.4 % (30.0-46.0); HEMOGLOBIN 6.1 g/dL (10.0-15.0); MCH 31.3 pg (27.0-34.0); MCHC 33.2 gm/dL (32.0-36.5); PLATELET COUNT 139 K/uL (150-450); RBC 1.95 M/uL (3.00-5.00)
[2016-12-29 05:58] LABS: ANION GAP 11.8 (10.0-19.0); CREATININE 0.9 mg/dL (0.5-1.1); MAGNESIUM 2.3 mg/dL (1.8-2.6); POTASSIUM 4.8 mMol/L (3.7-5.1)
[2016-12-29 06:03] LABS: CALCIUM 7.4 mg/dL (8.5-10.5)
--- NOTE | 2016-12-29 06:42 | NUR ---
Significant Event: A/Ox3. Numbness to right hand and patient states she has due to carpal tunnel. Mepilex dressing to hip c/d/i with lilli wrap and immobilizer. 1L O2 NC. Unable to stand at bedside with nurses. Denies pain or nausea throughout shift. IV to L)AC. Systolic blood pressure 98-103. Unable to void tonight after catheter removal. Call physician if bladder scan above 300ml. (188ml bladder scan at 0345). Wears Levy-J collar. [place] to posterior head c/d/i. Follow up:
--- NOTE | 2016-12-29 12:09 | NUR ---
Call from Reina at [facility], cell [phone] - office [phone], she tells me that they are willing to accept Angélica but they won't be able to accept until Tuesday 01/02 as it is a holiday weekend and Sunday they won't have the pharmacy access to fill her medications that are needed for her. I let her know that this was fine. Packet started, orders printed, ID Screen done and in the chart. Dr. Guardado was up on the floor reviewing her information so I updated him to the above, he was fine with this plan. Updated son, Smooth, as well, he was in agreement too. Angélica was with nursing getting blood so I didn't talk with her but her son said that he would update her and if she had questions he would let me know and I would come back. RN to RN number was left on the front of the chart for nursing to call on Sunday. Fax cover letter left on the chart with fax number so nursing could fax orders on Sunday as well. Reina was going to check with Dr. Grijalva (certified court/medical interpreter at SNF) to see if he would be willing to watch Angélica while she was there since her doctor she sees' is a PA. If he was willing to accept, Reina would have him stop up and see her before Sunday. Reina was also going to check on a MD at [facility] who followed Angélica last time she was there as well so they had a back up option to Dr. Gracia. No other questions, needs or concerns. CM to continue to follow and assist. Plan SNF on Sunday for therapies with the goal of returning back home.
--- NOTE | 2016-12-29 16:31 | NUR ---
ULTRA HIGH FALL RISK Significant Event: A/O X3, TTWB RLE, mepilex x2 intact w/ old drng, lilli wrap/immobilizer to RLE, CSM intact, 2 assist pivot, full lift used by nursing. 2 units PRBC for HGB 6.1, L)AC IV, episode of AFIB today (HR 140) then return to , hx AFIB, cardiology consulted. issac D/I to back of head, unable to void, st.cath @ 1445. BM today. takes diet well. [place]-J on for comfort from arthritis. Follow up: place antoine if unable to void and bladder scan >500
[2016-12-30 07:09] LABS: BASOPHIL % 0.1 %; EOSINOPHIL % 0.1 %; HEMATOCRIT 24.2 % (30.0-46.0); HEMOGLOBIN 8.1 g/dL (10.0-15.0); IMMATURE GRANULOCYTE # 0.1 K/uL (0.0-0.3); IMMATURE GRANULOCYTE % 0.6 %; LYMPHOCYTE # 1.6 K/uL (0.8-4.0); LYMPHOCYTE % 13.1 %; MCH 30.2 pg (27.0-34.0); MCHC 33.5 gm/dL (32.0-36.5); MCV 90.3 fl (83.0-98.0); MONOCYTE # 1.6 K/uL (0.0-1.0); MONOCYTE % 13.5 %; MPV 10.1 fl (9.4-12.4); NEUTROPHIL # (ANC) 8.7 K/uL (1.8-7.8); NEUTROPHIL % 72.6 %; NRBC % 0.6 /100WBC (0-0.00); PLATELET COUNT 133 K/uL (150-450); RBC 2.68 M/uL (3.00-5.00); RDW-CV 15.7 % (11.9-14.6)
[2016-12-30 07:24] LABS: ANION GAP 12.1 (10.0-19.0); BLOOD UREA NITROGEN 20 mg/dL (6-24); CALCIUM 7.4 mg/dL (8.5-10.5); CHLORIDE 106 mMol/L (96-110); CO2 26 mMol/L (22-32); CREATININE 0.6 mg/dL (0.5-1.1); ESTIMATED GFR (MDRD EQUATION) > 60; MAGNESIUM 2.2 mg/dL (1.8-2.6); POTASSIUM 4.1 mMol/L (3.7-5.1); SODIUM 140 mMol/L (135-145)
--- NOTE | 2016-12-30 07:32 | NUR ---
Significant Event: A/Ox3. 2A full lift for transfers. VSS. Ultram given x1 for pain tonight. Phenergan given x1 for c/o nausea. Voids without difficulty and no antoine needed. Joni wrap, mepilex, and immobilizer c/d/i to left lower extremity. Follow up: [facility] sunday
--- NOTE | 2016-12-30 15:42 | NUR ---
UP INTO THE CHAIR AND ONTO THE COMMODE WITH THE [facility]. LIFT. MEPILEX DRESSING, DAVID WRAP, AND KNEE IMMOBILIZER TO RIGHT LEG C/D/I. ALERT AND ORIENTED TIMES 3. C/O NUMBNESS TO RIGHT HAND BUT STATES THIS IS NOT NEW. HARD COLLAR ON PRN FOR COMFORT, SHE HAS WORN IT MOST OF THE DAY. HAD A BM TODAY. HAD A LARGE EMESIS THIS MORNING ANG GOT PHENERGAN 12.5 MG PO FOR IT AND HAS HAD NO NAUSEA SINCE. VOIDING WITHOUT DIFFICULTY. WILL TRANSFER TO THE [facility] ON SUNDAY.
--- NOTE | 2016-12-30 16:46 | NUR ---
Significant Event: PT TRANSFERED TO MSU FROM NTU AT 1600. PT ALERT AMD ORIENTED. RESTS QUIETLY IN THE BED AT THIS TIME. DENIES PAIN. 02 OFF AT PRESENT TIME. LIFT TO TRANSFER TO COMMODE OR RECLINER. VOIDS WELL. BM TODAY. PLEASANT AND COOPERTIVE. WEARS [place] J COLLAR FOR COMFORT. DAVID WRAP WITH IMMOBILIZER ON RT LEG. MEPILEX TO HIP TELE FOR A-FIB. Follow up:
--- NOTE | 2016-12-30 17:16 | NUR ---
TRANSFERED FROM NTU TO NHU AT 1600. PT DENIES PAIN. RESTS QUIETLY IN THE BED.IMMOBILIZER ON RT LRG. DRESSING INTACT. OFF 02 AT PRESENT TIME. PLEASANT AND COOPERTIVE.
--- NOTE | 2016-12-31 04:36 | NUR ---
Significant Event: Patient is TTWB, but uses a full lift. Denies pain. On room air. Dressing has old drainage. CSM WNL. Immobilizer on. Voids without difficulty. Wears [place] J for comfort. On telemetry with no calls. Follow up:
[2016-12-31 05:12] LABS: BASOPHIL % 0.2 %; EOSINOPHIL % 0.2 %; HEMATOCRIT 22.5 % (30.0-46.0); IMMATURE GRANULOCYTE # 0.1 K/uL (0.0-0.3); LYMPHOCYTE # 1.7 K/uL (0.8-4.0); LYMPHOCYTE % 14.2 %; MCH 30.4 pg (27.0-34.0); MCHC 33.3 gm/dL (32.0-36.5); MCV 91.1 fl (83.0-98.0); MONOCYTE # 1.6 K/uL (0.0-1.0); MONOCYTE % 13.1 %; MPV 10.1 fl (9.4-12.4); NEUTROPHIL # (ANC) 8.5 K/uL (1.8-7.8); NEUTROPHIL % 71.3 %; NRBC % 0.3 /100WBC (0-0.00); PLATELET COUNT 151 K/uL (150-450); RBC 2.47 M/uL (3.00-5.00); WBC 11.9 K/uL (4.0-11.0)
[2016-12-31 05:17] LABS: HEMOGLOBIN 7.5 g/dL (10.0-15.0)
--- NOTE | 2016-12-31 08:10 | NUR ---
PT SCREENED D/T LOS. EST NEEDS: [id number] KCALS, 63-76 GM PROTEIN, 1 ML/KCAL FLUIDS. INTAKE GOOD. NOT AT RISK. WILL ASSIST NEEDED.
[2016-12-31 11:28] LABS: CPK 393 IU/L (21-215)
--- NOTE | 2016-12-31 16:07 | NUR ---
Significant Event: pt alert and oriented. up in the recliner with 2 assist. stand pivot transfer. can use lift if needed. voids per bedpan or commode. large bm today. had some lt sided chest pain this noon and cardiac workup done but is normal. tele on, tacky at times. hx a-fib. ultram for pain this am. refused meds this afternoon. immobilizer to lt leg. pt is to stop wearing [place] j collar. vitals stable. [facility] on sunday. Follow up:
--- NOTE | 2017-01-01 04:38 | NUR ---
Significant Event: Gave 1 unit of blood. Voids without difficulty. On tele with no calls. TTWB. 2 assist pivot. On room air. Hypotensive, but better. Dressing has old dried blood to hip. Immobilizer. Denies pain[facility] Follow up:
[2017-01-01 05:42] LABS: BASOPHIL % 0.2 %; EOSINOPHIL # 0.1 K/uL (0.0-0.5); EOSINOPHIL % 1.2 %; HEMATOCRIT 26.3 % (30.0-46.0); HEMOGLOBIN 8.9 g/dL (10.0-15.0); IMMATURE GRANULOCYTE # 0.2 K/uL (0.0-0.3); IMMATURE GRANULOCYTE % 1.5 %; LYMPHOCYTE # 1.9 K/uL (0.8-4.0); LYMPHOCYTE % 17.5 %; MCH 30.8 pg (27.0-34.0); MCHC 33.8 gm/dL (32.0-36.5); MONOCYTE # 1.3 K/uL (0.0-1.0); MONOCYTE % 11.7 %; MPV 9.8 fl (9.4-12.4); NEUTROPHIL # (ANC) 7.5 K/uL (1.8-7.8); NEUTROPHIL % 67.9 %; NRBC % 0 /100WBC (0-0.00); PLATELET COUNT 179 K/uL (150-450); RBC 2.89 M/uL (3.00-5.00); RDW-CV 14.7 % (11.9-14.6)
[2017-01-01 05:47] LABS: ANION GAP 12.8 (10.0-19.0); BLOOD UREA NITROGEN 19 mg/dL (6-24); CALCIUM 7.8 mg/dL (8.5-10.5); CHLORIDE 107 mMol/L (96-110); CO2 24 mMol/L (22-32); CREATININE 0.6 mg/dL (0.5-1.1); ESTIMATED GFR (MDRD EQUATION) > 60; POTASSIUM 3.8 mMol/L (3.7-5.1); SODIUM 140 mMol/L (135-145)
--- NOTE | 2017-01-01 16:57 | NUR ---
Significant Event: Pivot transfers with one assist, walker and gaitbelt. Maintain TTWB to R) leg. Immobilizer at all times. Dressings with old drainage. Denies pain, refuses offers of pain medication. Voids per bedside commode, need encouragement to get up and use the commode instead of the bedpan. Tele, no calls. Plans to transfer to [facility] tomorrow. Follow up:
--- NOTE | 2017-01-02 04:34 | NUR ---
Significant Event: 1 ASSIST TO THE BEDSIDE COMMODE. VOIDS WITHOUT DIFFICULTY. DRESSING HAS OLD MARKED DRAINAGE. CSM WNL. ON TELE WITH NO CALLS. TTWB. GOING TO [facility] TODAY. DENIES PAIN. Follow up:
[2017-01-02 05:20] LABS: BASOPHIL % 0.3 %; EOSINOPHIL # 0.2 K/uL (0.0-0.5); EOSINOPHIL % 1.7 %; HEMATOCRIT 26.6 % (30.0-46.0); HEMOGLOBIN 8.6 g/dL (10.0-15.0); IMMATURE GRANULOCYTE # 0.1 K/uL (0.0-0.3); IMMATURE GRANULOCYTE % 1.3 %; LYMPHOCYTE # 1.9 K/uL (0.8-4.0); LYMPHOCYTE % 17.7 %; MCH 30.1 pg (27.0-34.0); MCHC 32.3 gm/dL (32.0-36.5); MONOCYTE # 1.2 K/uL (0.0-1.0); MONOCYTE % 11.5 %; MPV 9.9 fl (9.4-12.4); NEUTROPHIL # (ANC) 7.3 K/uL (1.8-7.8); NEUTROPHIL % 67.5 %; NRBC % 0 /100WBC (0-0.00); PLATELET COUNT 200 K/uL (150-450); RBC 2.86 M/uL (3.00-5.00); RDW-CV 14.9 % (11.9-14.6); WBC 10.7 K/uL (4.0-11.0)
--- NOTE | 2017-01-02 09:30 | NUR ---
Reina from [facility] called to verify patient can come today. Yes, about ready to fax orders. Reina needs to change pickup time from 1030 to 1130. Angie Ramirez, Charge Angie and patients nurse Magui updated. 0945 Angie Ramirez completed orders and faxed the. 1020 Reina call and left a message needing to know if Dr Grijalva rounded on patient. Faxed doctors note to [place] that he did round and will assume care. 1035 Called back Reina, she got the doctors note. Informed patient that [facility] would be here in about 30 minutes. No concerns or questions. PASRR was tubed over from NTU and placed in new discharge packet.
--- NOTE | 2017-01-02 11:09 | NUR ---
Pt is a/o. 3 Mepilex dressings intact to R) hip/thigh. Has soft band/lilli wrap to R) thigh to toes. Knee immbolizer on. Has issac to R) leg, to be removed on 2 week follow up. Has issac to head laceration posterior occipital area. They need to be removed in 7 days. When she injured her hip she also cut her head on a desk. She is toe touch weight bearing R) leg. Uses walker and gaitbelt. 1 assist. This morning she was lightheaded. Orthostatic blood pressures were checked. She was given 500 ml NS bolus and is feeling much better and orthostatic blood pressures rechecked and they were improved. CSM WNL to R) leg. Denies c/o pain when sitting and minimal pain when up to commode. Refuses pain meds when offered. Has history of afib, heart rate will be in 90's and can increase to 120's, aware, no orders. Cooperative with cares.
== END 2017-01-02 11:30 | DRG 481 ==
LOC: GACC 16:03 → GNTU 18:49 → GMSU 12-30 16:19
PROVIDERS: Emergency Medicine; Hospitalist; Orthopaedic Surgery Adult Reconstructive Orthopaedic Surgery; ADMIT Internal Medicine
DX: S72.90XA Unspecified fracture of unspecified femur, initial encounter for closed fracture (principal); D62 Acute posthemorrhagic anemia; I48.0 Paroxysmal atrial fibrillation; I10 Essential (primary) hypertension; S01.01XA Laceration without foreign body of scalp, initial encounter; D72.829 Elevated white blood cell count, unspecified; K58.9 Irritable bowel syndrome, unspecified; M19.90 Unspecified osteoarthritis, unspecified site; W18.30XA Fall on same level, unspecified, initial encounter; I95.1 Orthostatic hypotension; E78.5 Hyperlipidemia, unspecified
CPT/HCPCS: C1713; J0690; J1650; J2250; J2405; J2550; J2765; J3010; J3480; J7040; J7050; J7120; P9016

== ENCOUNTER → 2017-01-15 | Outpatient (CLI) | payer OTHER, MEDICARE ==
[~2017-01-15] MED LIST: ASPIRIN EC81 MG PO; ASPIRIN325 MG PO; CALCIUM GLUC500 MG PO; CARDIZEM SR120 MG PO; DILTIAZEM ER120 M2 PO; EVISTA60 MG PO; FOSAMAX70 MG PO; LIORESAL10 MG PO; LOVENOX 4040 MG/0.4 SUB-Q; MELOXICAM7.5 MG PO; METAMUCIL CAPSU1 CAP PO; MIRALAX PO527 GM/BOT PO; MIRALAX17 GM PO; MULTAQ400 MG PO; NATURAL FIBER0.52 GM PO; OCUVITE WITH L1 EACH PO; PAIN RELIEVER325 MG PO; PHENERGAN25 M1 PO; TIZANIDINE HCL2 MG PO; TRAMADOL HCL50 MG PO; ULTRAM50 MG PO; VITAMIN D-32000 UNI1 PO
[2017-01-15 14:27] LABS: BASOPHIL % 0.4 %; EOSINOPHIL # 0.1 K/uL (0.0-0.5); EOSINOPHIL % 1.1 %; HEMATOCRIT 31.7 % (30.0-46.0); HEMOGLOBIN 9.9 g/dL (10.0-15.0); IMMATURE GRANULOCYTE # 0.1 K/uL (0.0-0.3); IMMATURE GRANULOCYTE % 0.7 %; LYMPHOCYTE # 1.2 K/uL (0.8-4.0); LYMPHOCYTE % 12.6 %; MCHC 31.2 gm/dL (32.0-36.5); MONOCYTE # 1.1 K/uL (0.0-1.0); MONOCYTE % 11.8 %; MPV 9.7 fl (9.4-12.4); NEUTROPHIL # (ANC) 6.8 K/uL (1.8-7.8); NEUTROPHIL % 73.4 %; NRBC % 0 /100WBC (0-0.00); RBC 3.19 M/uL (3.00-5.00); RDW-CV 16.2 % (11.9-14.6); WBC 9.2 K/uL (4.0-11.0)
[2017-01-15 14:34] LABS: MCV 99.4 fl (83.0-98.0); PLATELET COUNT 420 K/uL (150-450)
[2017-01-15 14:43] LABS: ALBUMIN 2.9 gm/dL (3.5-5.0); ALK PHOS 98 IU/L (33-138); ALT 35 IU/L (12-78); ANION GAP 13.2 (10.0-19.0); AST 34 IU/L (10-40); BLOOD UREA NITROGEN 20 mg/dL (6-24); CALCIUM 8.2 mg/dL (8.5-10.5); CHLORIDE 103 mMol/L (96-110); CO2 26 mMol/L (22-32); CREATININE 0.6 mg/dL (0.5-1.1); ESTIMATED GFR (MDRD EQUATION) > 60; POTASSIUM 4.2 mMol/L (3.7-5.1); SODIUM 138 mMol/L (135-145); TOTAL BILIRUBIN 0.5 mg/dL (0.0-1.5); TOTAL PROTEIN 5.3 g/dL (6.0-8.4)
== END ==
LOC: LGSRV 13:54
PROVIDERS: Family Medicine
DX: D72.829 Elevated white blood cell count, unspecified (principal); D62 Acute posthemorrhagic anemia; M19.90 Unspecified osteoarthritis, unspecified site; I48.0 Paroxysmal atrial fibrillation; M81.0 Age-related osteoporosis without current pathological fracture

== ENCOUNTER 2017-01-23 14:00 | Inpatient (IN) | payer MEDICARE, OTHER ==
[~2017-01-23] VITALS: Ht 154.9 cm; Wt 60.9 kg
--- NOTE | ~2017-01-23 | DS ---
PATIENT'S NAME: MINA CARDOSO [facility] AGE: 86 Y [address] 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 SECONDARY DIAGNOSES: 1. Paroxysmal atrial fibrillation. 2. Osteoporosis. 3. Osteoarthritis. 4. Hypertension. CONSULTATIONS: To the Hospitalist Service for medical management and to Dr. Avni Tiwari's office for Cardiology. PROCEDURE: The patient underwent the following procedure by Dr. Acuña on January 24, 2017: 1. Takedown nonunion of right supracondylar femur fracture. 2. Open reduction and internal fixation of right supracondylar distal femur fracture with plate and screw construct. 3. Removal of femoral intramedullary nail with previous attempted femoral fixation. 4. Use of Infuse bone graft. HISTORY OF PRESENT ILLNESS: The patient is a pleasant 86-year-old female, who underwent right femoral intramedullary nailing for femur fracture. When the patient was seen in followup, it was noted on the distal end, there was nonunion/malunion overthe orthopedic hardware. It was determined that the patient would benefit from removal of the intramedullary nail and placement of open reduction and internal fixation of the distal femur fracture. The risks, benefits, and alternatives to pursuing surgical intervention were discussed with the patient and her family at that time, and the patient elected to proceed with surgery at that time. HOSPITAL COURSE: The patient underwent the following procedure as described above on January 24, [address] Acuña. Initially, postoperatively the patient's hemoglobin did drop to 6.1, and she did require a transfusion of 2 units of packed red blood cells. Her Lovenox and aspirin were held for 2 days postoperatively. The patient did develop some postoperative paroxysmal atrial PATIENT'S NAME: MINA CARDOSO [facility] AGE: 86 Y [address] ROOM: [place] [address] LOCATION: GPCU ADMIT DATE: 01/24/2017 Discharge Summary DISCHARGE DATE: 01/30/2017 FAMILY PHYSICIAN: Jerome Navarro PA-C ATTENDING PHYSICIAN: Jerome Acuña fibrillation which Dr. Tiwari's office was consulted. The patient was evaluated and optimized from a cardiology position. The Hospitalist service did follow the patient postoperatively and optimized the patient during admission for discharge. The patient was kept under adequate pain control during her admission, and pain medications were optimized for. The patient was found to be stable for discharge on January 30, 2017, to [facility]. DISCHARGE MEDICATIONS: Stopped medications: Multaq 400 mg p.o. b.i.d. The patient is to hold tramadol while on Nucynta. New medications: 1. Nucynta 50 mg 1-2 tabs every 4 hours as needed for pain. 2. Fleet enema as needed for constipation. 3. Dulcolax suppository 10 mg as needed for constipation. 4. Lovenox 40 mg subcu daily. 5. Colace 100 mg p.o. t.i.d. p.r.n. constipation. 6. Amiodarone 200 mg p.o. b.i.d. Otherwise, the patient is to continue her pre-admission medications as instructed by her Internal Medicine doctor. DISCHARGE INSTRUCTIONS: The patient was transferred to the [facility] bed for continued recovery. She is to be toe-touch weightbearing of her right lower extremity in her knee immobilizer. She is to eat a regular diet. Mepilex dressings to her right hip and thigh every 2-3 days or as needed. Compressive dressing to her right lower extremity is to be changed at the same time. She is to follow up with Dr. Klaudia Tiwari 2 weeks after discharge. She is to follow up with Dr. Acuña 2 weeks after discharge for postoperative follow up. DISCHARGE STATUS: Good. CONCHIS MENESES PA-C FOR MD MAHIN FRAGOSO/deisi /[id number] CC: Avni Tiwari MD d: 02/06/17 0029 t: 02/07/17 0933, DISCHARGE SUMMARY
--- NOTE | ~2017-01-23 | CON ---
PATIENT'S NAME: MINA CARDOSO [facility] AGE: 86 Y [address] ROOM: [address] [place] [address] LOCATION: GPCU ADMIT DATE: 01/24/2017 Consultation DISCHARGE DATE: 01/30/2017 FAMILY PHYSICIAN: Jerome Navarro PA-C ATTENDING PHYSICIAN: Jerome Acuña DATE OF CONSULTATION: 01/29/2017 REFERRING PHYSICIAN: Keith Mcnair MD REASON FOR CONSULT: Persistent atrial fibrillation. HISTORY OF PRESENT ILLNESS: This is an 86-year-old female with a known history of paroxysmal atrial fibrillation. She had been on Multaq therapy as well as aspirin. She normally sees Dr. Castillo as well as Dr. Grijalva. In December, she sustained a mechanical fall with a fracture to the right distal femur. She had an IM rodding done at that time. She was admitted on 01/24/2017 for removal of the IM lawrence due to nonunion of the bone. On admission, her EKG showed that she was in a normal sinus rhythm. After surgery, her hemoglobin dropped to 6.1. She did receive a couple units of packed red blood cells and then was noted to be in atrial fibrillation with rapid ventricular response with her heart rates in the 170s. On admission, she was on Multaq therapy, that was discontinued when she went into atrial fibrillation. She was then initiated on an amiodarone infusion and converted to a normal sinus rhythm. Her ejection fraction in December 2016 was 50% to 60%. When talking with the patient, she denies feeling any palpitations, but once in a while she has felt a little short of breath. She denies feeling lightheaded or dizzy. No presyncope or syncopal episodes. PAST MEDICAL HISTORY: 1. Osteoporosis. 2. Paroxysmal atrial fibrillation, following Dr. Castillo. 3. Osteoarthritis, post bilateral knee replacement. 4. Hypertension. 5. History of irritable bowel syndrome. 6. Hysterectomy. 7. Cholecystectomy. 8. Appendectomy. 9. Rotator cuff repair. 10. Bilateral carpal tunnel syndrome. 11. Lysis and adhesions for abdominal pain. 12. Left femur IM rodding in 2012. 13. Bilateral cataract surgery. 14. T and A. PATIENT'S NAME: MINA CARDOSO [facility] AGE: 86 Y [address] ROOM: [address] [address] LOCATION: GPCU ADMIT DATE: 01/24/2017 Consultation DISCHARGE DATE: 01/30/2017 FAMILY PHYSICIAN: Jerome Navarro PA-C ATTENDING PHYSICIAN: Jerome Acuña 15. Five vaginal deliveries. ALLERGIES: MORPHINE, OXYCODONE, AZITHROMYCIN, AND LORTAB. HOME MEDICATIONS: 1. Acetaminophen 650 mg p.o. t.i.d. 2. Fosamax 70 mg weekly. 3. Aspirin 81 mg daily. 4. Calcium gluconate 500 mg daily. 5. Vitamin D3, 2000 units daily. 6. Diltiazem extended release 120 mg capsule daily. 7. Multaq 400 mg b.i.d. 8. She had been on Lovenox 40 mg subcu daily. 9. Metamucil 3 caps p.o. daily. 10. Tramadol 50 mg every 6 hours. 11. Vitamin A, C, and E lutein minerals 1 tablet every day. SOCIAL HISTORY: She is . Prior to this fall, she had been living independently at home. She has a remote history of tobacco use. She started smoking at the age of 52, she quit in 2014, she has smoked for 33 years, 1/2 pack of cigarettes a day. FAMILY HISTORY: The patient is adopted. She does not know her family history. REVIEW OF SYSTEMS: GENERAL: She is feeling a little fatigued after her surgery. HEAD: No history of headache. EYES: She does have some vision problems. She wears corrective lenses. She has had cataract surgery. NOSE: No problems with epistaxis or rhinorrhea. MOUTH: She has a full set of dentures. THROAT: No difficulty with swallowing. PULMONARY: No cough or hemoptysis. GASTROINTESTINAL: Negative for nausea, vomiting, or diarrhea. No history of melena or hematochezia. GENITOURINARY: Positive for nocturia. MUSCULOSKELETAL: She has had a recent fall with fracture of the right femur. NEUROLOGIC: She denies symptoms of TIA. She is nonweightbearing at this time. Gait has not been assessed. PHYSICAL EXAMINATION: VITAL SIGNS: She is 5 feet and 1 inch, she weighs 134 pounds, blood pressures PATIENT'S NAME: MINA CARDOSO [facility] AGE: 86 Y [address] ROOM: [address] [address] LOCATION: GPCU ADMIT DATE: 01/24/2017 Consultation DISCHARGE DATE: 01/30/2017 FAMILY PHYSICIAN: Jerome Navarro PA-C ATTENDING PHYSICIAN: Jerome Acuña have been in the 130s/80s, and heart rate is in the 80s. GENERAL: She is alert, answers questions appropriately. SKIN: Warm, dry, and pink. NECK: Soft and supple. There is no lymphadenopathy. No thyromegaly. JVD is flat. LUNGS: Lung sounds were clear with symmetrical chest rise. CV: Currently is regular with a normal S1 and S2. No murmur was appreciated. PMI is nondisplaced. ABDOMEN: Soft. Bowel sounds are present. Right leg is in a half cast. Toes are warm to touch. Radial pulses are 2+ bilaterally. Left pedal pulses 2+. LABORATORY DATA: Troponin 0.04. Initial hemoglobin was 7.9, today it is 8.9. BUN is 9, creatinine is 0.5, sodium 135, potassium 3.7, and magnesium 2. TSH was 4.940. ASSESSMENT: Paroxysmal atrial fibrillation. We are going to stop the Multaq. She does have an echocardiogram pending. Continue her on the IV amiodarone load and then we will switch her to oral medications. I do anticipate she will be transferred back to the alf in the morning. The assessment and plan, history of present illness, and physical exam are per Dr. Tiwari. We would like to thank Dr. Acuña as well as Dr. Grijalva for allowing us to participate in the patient's care. REENA REYNAGA APRN FOR MD SABINO MANCINI/deisi /[id number] d: 01/31/17 0152 t: 02/14/17 1650, CONSULTATION REPORT
--- NOTE | ~2017-01-23 | OR ---
PATIENT'S NAME: MINA CARDOSO [facility] AGE: 86 Y [address] ROOM: [place] [address] LOCATION: [facility] ADMIT DATE: 01/24/2017 OR/Procedure Report DISCHARGE DATE: FAMILY PHYSICIAN: Rogelio Navarro PA-C ATTENDING PHYSICIAN: ROGELIO TRAN SURGEON: Rogelio Tran MD TRANSPORTATION JOB TITLES: Tomer Jones PA-C. 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 PROCEDURES: 1. Takedown nonunion of right supracondylar femur fracture. 2. Open reduction and internal fixation of right supracondylar distal femur fracture with plate and screw construct. 3. Removal of femoral intramedullary nail from previous attempted femoral fixation. 4. Use of intraoperative fluoroscopy, less than 1 hour. 5. Use of Infuse bone graft. ANESTHESIA: General endotracheal anesthesia. FLUIDS: See anesthesia report. ESTIMATED BLOOD LOSS: 500. TOURNIQUET: Right proximal thigh, 250 mmHg. SPECIMEN: None. COMPLICATIONS: None. DISPOSITION: Stable in PACU. COUNTS: All counts were correct. IMPLANTS: Synthes distal femoral periarticular locking plate and screws. INDICATIONS: This lady is a pleasant 86-year-old female who underwent the noted procedures above. The risks, benefits, and alternatives to pursuing surgical intervention were discussed with the patient detail. Anesthesia was consulted for their perioperative evaluation of the patient. I marked the PATIENT'S NAME: MINA CARDOSO [facility] AGE: 86 Y [address] ROOM: [place] [id number] LOCATION: [facility] ADMIT DATE: 01/24/2017 OR/Procedure Report DISCHARGE DATE: FAMILY PHYSICIAN: Rogelio Navarro PA-C ATTENDING PHYSICIAN: ROGELIO TRAN patient's right lower extremity indicating correct surgical site. DESCRIPTION OF PROCEDURE: The patient was brought from the holding area to the operating room. Time-out was performed. General endotracheal anesthesia was administered. The right lower extremity was then prepped and draped in a sterile fashion. I turned my attention to the right leg. An Esmarch was used to exsanguinate the limb and the tourniquet was inflated to 250 mmHg. I turned my attention to the proximal hip. I made a previous incision to get down to the greater trochanter. I introduced the femoral nail remover. I removed the cephalomedullary nail from the side of the hip and the 2 distal interlocking screws. The nail was subsequently removed in its entirety without complication. I then turned my attention back to the distal femur. I introduced intraoperative fluoroscopy. I identified the fracture. I opened my previous surgical incision and extended it distally to the level of the knee. The incision was carried through skin, subcutaneous tissue, fascia, muscle, and bone. I then turned my attention to the bone. I introduced a series of [place] bone clamps to reduce the fracture. There was traction placed by my PA, Tomer Jones PA-C. I then achieved provisional bony fixation, selected 12-hole plate, placed it laterally, pinned it into place, and confirmed its position fluoroscopically. I then attempted to achieve multiple points of fixation distally above the total knee replacement. I was able to achieve multiple points of fixation by first using a compression screw to compress the plate down to bone, followed by locking screws to provide fixed angle fixation at the distal femur. Once the distal femoral fixation was achieved, I then turned my attention to the proximal femur. I then pinned the plate in place proximally. I then percutaneously drilled for, measured, and placed first compression screws and then locking screws to achieve multiple points of fixation proximally. Notably, her bone was severely osteopenic. The wounds were then copiously irrigated with normal sterile saline solution. Final fluoroscopic images revealed evidence of a successful removal of the femoral nail and cephalomedullary screw and distal interlocking screws with subsequent placement of a distal femoral periarticular locking plate and screw construct in satisfactory position. PATIENT'S NAME: MINA CARDOSO [facility] AGE: 86 Y [address] ROOM: [id number] [place] [id number] LOCATION: [facility] ADMIT DATE: 01/24/2017 OR/Procedure Report DISCHARGE DATE: FAMILY PHYSICIAN: Rogelio Navarro PA-C ATTENDING PHYSICIAN: ROGELIO TRAN Infuse bone graft was then placed at the fracture site. The wounds were then all closed in layers beginning with 0 Vicryl suture followed by 2-0 Vicryl suture and issac. The tourniquet was let down. Sterile dressing was placed in the form of Xeroform, followed by 4x4, Webril, and Joni bandage wrap from the toes up to the proximal thigh. Knee immobilizer placed. The patient was then transferred to the operating room table on the stretcher and extubated. She was brought to the recovery room in stable condition. There were no intraoperative complications noted. Of note, my PA, Tomer Jones PA-C, played an integral role in the intraoperative care of this patient. This included preoperative positioning, intraoperative expert retraction, and closing and dressing functions. IMPRESSION: The patient is status post the noted procedures above. PLAN: The patient will be toe-touch weightbearing in the right lower extremity. She will be encouraged to rest, ice, and elevate the extremity going forward. She will maintain the knee immobilizer for now. Physical Therapy and Occupational Therapy will consult for early ambulation prevention of deconditioning. The hospitalist will be consulted to manage the patient's concomitant medical comorbidities. On postop day #1, hemoglobin will be obtained as the patient did lose approximately 500 mL of blood intraoperatively. Postoperative antibiotics will be per routine. DVT prophylaxis will be in the form of Lovenox. We will continue to monitor the patient closely postoperatively. MD JESSI FRAGOSO/juan miguell /[id number] d: 01/24/17 2231 t: 01/25/17 0846, OPERATIVE SUMMARY
--- NOTE | ~2017-01-23 | CON ---
[facility] 86 Y [address] ROOM: [place] [address] LOCATION: [facility] ADMIT DATE: 01/24/2017 Consultation DISCHARGE DATE: FAMILY PHYSICIAN: Rogelio Navarro PA-C ATTENDING PHYSICIAN: ROGELIO TRAN DATE OF CONSULTATION: 01/24/2017 REFERRING PHYSICIAN: NELL MICHAEL MD CONSULTING PHYSICIANS: Dr. Mcgee. REASON FOR CONSULTATION: Medical management. HISTORY OF PRESENT ILLNESS: The patient is an 86-year-old female, postop day 0, for a revision of the right hip ORIF. The patient did have to receive 2 units of PRBCs for hemoglobin of 6.1 after the surgery. At this point, she is very comfortable, and denies any chest pain, shortness of breath, nausea, vomiting, or diarrhea. REVIEW OF SYSTEMS: All systems have been reviewed and are negative aside for pertinent positives mentioned above. PAST MEDICAL HISTORY: Significant for: 1. Mechanical fall, causing the right hip fracture, that required revision. 2. Atrial fibrillation on rhythm control and not on any anticoagulation. 3. Osteoporosis. 4. Osteoarthritis. 5. Hypertension. PAST SURGICAL HISTORY: As above. CURRENT MEDICATIONS: 1. Acetaminophen. 2. Alendronate. 3. Aspirin. 4. Calcium gluconate. [facility]GE: 86 Y [address] ROOM: [place] [address] LOCATION: [facility] ADMIT DATE: 01/24/2017 Consultation DISCHARGE DATE: FAMILY PHYSICIAN: Rogelio Navarro PA-C ATTENDING PHYSICIAN: ROGELIO TRAN 5. Cholecalciferol. 6. Diltiazem 120 Sustained Release. 7. Multaq 400 p.o. b.i.d. 8. Lovenox 40 subcu daily. 9. MiraLAX. 10. Psyllium. 11. Tramadol. 12. Ocuvite. SOCIAL HISTORY: Negative for any history of ongoing toxic habits. PHYSICAL EXAMINATION: VITAL SIGNS: Temperature 97.9, pulse is 86, respirations 16, blood pressure 113/73, and satting 91% on 2 L nasal cannula. GENERAL: Appears as a well-developed, well-nourished elderly frail female in no acute distress. NEUROLOGIC: Exam is nonfocal. EYES: Exam shows pupils are equal and reactive to light. LYMPHATICS: Exam shows no cervical lymphadenopathy. ENDOCRINE: Exam shows no thyromegaly. LUNGS: Show very minimal crackles at left base. HEART: Rate is regular with no appreciable murmurs, gallops, or rubs. GI: Abdomen is soft, nontender, nondistended. : No costovertebral angle tenderness. VASCULAR: A 2+ pedal pulses. MUSCULOSKELETAL: Exam is deferred. SKIN: Warm and dry. PSYCHIATRIC: Reveals a very pleasant, elderly female, in no acute distress, alert and oriented x3 with appropriate mood, cognition, and affect. LABORATORY DATA: Studies performed so far with a hemoglobin of 6.1. IMPRESSION AND RECOMMENDATIONS: This is an 86-year-old female postop day 0 for right hip open reduction and internal fixation revision. Individual problems to be addressed as follows: 1. Postoperative anemia. We will recheck the patient's hemoglobin now and transfuse as necessary. 2. Hypoxia. This is expected postop, we will continue her oxygen saturation and monitor her volume status. 3. Bowel regimen. We will add Colace to her current regimen. 4. Paroxysmal atrial fibrillation. Diltiazem and dronedarone have been continued by Primary Service. 5. Additional management will depend on clinical course. PATIENT'S NAME: MINA CARDOSO [facility] AGE: 86 Y [address] ROOM: [place] [address] LOCATION: [facility] ADMIT DATE: 01/24/2017 Consultation DISCHARGE DATE: FAMILY PHYSICIAN: Rogelio Navarro PA-C ATTENDING PHYSICIAN: ROGELIO TRAN Thank you for allowing us to participate in the care of this pleasant woman. We will follow the patient with you. Time dedicated to this patient encounter is 25 minutes. MD LISA BLAIR/deisi /[id number] d: 01/25/17 0224 t: 02/16/17 0402, CONSULTATION REPORT
[~2017-01-23 14:00] MED LIST changes: -ASPIRIN EC81 MG PO; -CARDIZEM SR120 MG PO; -FOSAMAX70 MG PO; -LOVENOX 4040 MG/0.4 SUB-Q; -METAMUCIL CAPSU1 CAP PO; -MIRALAX17 GM PO; -PAIN RELIEVER325 MG PO; -ULTRAM50 MG PO; -VITAMIN D-32000 UNI1 PO
[2017-01-23] MEDS ORDERED: FOSAMAX70 MG PO (15:51)
[2017-01-23] MEDS ORDERED: VITAMIN D-32000 UNI1 PO (15:52)
[2017-01-23] MEDS ORDERED: ASPIRIN EC81 MG PO (15:53)
[2017-01-23] MEDS ORDERED: METAMUCIL CAPSU1 CAP PO (15:53)
[2017-01-23] MEDS ORDERED: PAIN RELIEVER325 MG PO (15:53)
[2017-01-23] MEDS ORDERED: ULTRAM50 MG PO (15:54)
[2017-01-23] MEDS ORDERED: CALCIUM GLUC500 MG PO (15:54)
[2017-01-23] MEDS ORDERED: CARDIZEM SR120 MG PO (15:55)
[2017-01-23] MEDS ORDERED: MIRALAX17 GM PO (15:55)
[2017-01-23] MEDS ORDERED: MULTAQ400 MG PO (15:56)
[2017-01-23] MEDS ORDERED: OCUVITE WITH L1 EACH PO (15:56)
[2017-01-23] MEDS ORDERED: LOVENOX 4040 MG/0.4 SUB-Q (15:57)
[2017-01-24 15:10] LABS: HEMATOCRIT 19.4 % (30.0-46.0); HEMOGLOBIN 6.1 g/dL (10.0-15.0)
--- NOTE | 2017-01-24 18:34 | NUR ---
Significant Event: PT ALERT AND ORIENTED. UP FROM PACU AT 1700. CONT WITH POST OP VITAL SIGNS. 2ND 1/2 HOUR AT 1845. DRESSING TO RT HIP INTACT. DRAINAGE ON UPPER DRESSING. LOVENOX AND ASA TO BE HELD TODAY. IMMOBILIZER TO RT LEG. WIGGLES TOES WELL. DAVID AND GUAZE WRAP TO RT LEG. ICE TO HIP.FAMILY IN THE ROOM Follow up:
[2017-01-24 22:34] LABS: BASOPHIL % 0.1 %; HEMOGLOBIN 9.4 g/dL (10.0-15.0); IMMATURE GRANULOCYTE # 0.1 K/uL (0.0-0.3); IMMATURE GRANULOCYTE % 0.6 %; LYMPHOCYTE # 0.5 K/uL (0.8-4.0); MCH 32.1 pg (27.0-34.0); MONOCYTE # 1.4 K/uL (0.0-1.0); MONOCYTE % 7.8 %; MPV 8.8 fl (9.4-12.4); NEUTROPHIL # (ANC) 15.7 K/uL (1.8-7.8); NEUTROPHIL % 88.5 %; NRBC % 0 /100WBC (0-0.00); RBC 2.93 M/uL (3.00-5.00); RDW-CV 16.4 % (11.9-14.6)
[2017-01-24 22:35] LABS: HEMATOCRIT 27.5 % (30.0-46.0); MCHC 34.2 gm/dL (32.0-36.5); MCV 93.9 fl (83.0-98.0); PLATELET COUNT 201 K/uL (150-450); WBC 17.8 K/uL (4.0-11.0)
--- NOTE | 2017-01-25 04:26 | NUR ---
Patient alert and oriented x3, VSS, very pleasant and cooperative, did change proximal dressing on hip this shift and is now clean dry and intact, has lilli wrap and immobilizer in place to the right leg, csm with in normal limits, pain has been under control and has rested well,
[2017-01-25 05:33] LABS: BASOPHIL % 0.1 %; HEMATOCRIT 26.8 % (30.0-46.0); HEMOGLOBIN 9.2 g/dL (10.0-15.0); IMMATURE GRANULOCYTE # 0.1 K/uL (0.0-0.3); IMMATURE GRANULOCYTE % 0.7 %; MCH 32.4 pg (27.0-34.0); MCHC 34.3 gm/dL (32.0-36.5); MCV 94.4 fl (83.0-98.0); MONOCYTE # 1.7 K/uL (0.0-1.0); MPV 8.9 fl (9.4-12.4); NEUTROPHIL # (ANC) 9.3 K/uL (1.8-7.8); NEUTROPHIL % 77.2 %; NRBC % 0 /100WBC (0-0.00); PLATELET COUNT 199 K/uL (150-450); RBC 2.84 M/uL (3.00-5.00)
--- NOTE | 2017-01-25 12:09 | NUR ---
Introduced myself and role of care management to pt and her two sons Fito and another from [place]. Pt is at [facility] for retirement care and she states she plans on returning. I explained looking like she would be ready tomorrow if the doctors think she is ready. She plans on going by the facility van. I told son's I would keep him updated [phone]. I then called Reina at [facility] and she stated they do not need 3 overnites due to being just in and still getting skilled care and it is related. I told her the plan will be tomorrow if everything goes ok. WIll continue to follow.
--- NOTE | 2017-01-25 17:09 | NUR ---
Significant Event: Pt is a/o. Cooperative with cares. Dressing changed x 2 this am. Mepilex, ABD, medipore tape & Joni wrap c/d/i. CSM WNL. NWB R) leg, needs reminders. Up to chair 2 assist, walker/gaitbelt. Needs antoine dc'd in am. Nucynta last @ 1330. Immobilizer intact. Follow up:
--- NOTE | 2017-01-26 04:36 | NUR ---
Significant Event: Nucynta at 0351. Dressings are clean, dry and intact. NWB R). Santos catheter. Immobilizer. On room air. 2 assist with transfers. CSM WNL. Follow up:
[2017-01-26 04:56] LABS: BASOPHIL % 0.1 %; HEMATOCRIT 24.5 % (30.0-46.0); HEMOGLOBIN 8.4 g/dL (10.0-15.0); IMMATURE GRANULOCYTE # 0.1 K/uL (0.0-0.3); IMMATURE GRANULOCYTE % 0.6 %; LYMPHOCYTE # 0.9 K/uL (0.8-4.0); MCH 31.9 pg (27.0-34.0); MCHC 34.3 gm/dL (32.0-36.5); MCV 93.2 fl (83.0-98.0); MONOCYTE # 1.8 K/uL (0.0-1.0); MONOCYTE % 13.6 %; MPV 9.2 fl (9.4-12.4); NEUTROPHIL # (ANC) 10.3 K/uL (1.8-7.8); NEUTROPHIL % 78.7 %; NRBC % 0 /100WBC (0-0.00); PLATELET COUNT 197 K/uL (150-450); RBC 2.63 M/uL (3.00-5.00); WBC 13.1 K/uL (4.0-11.0)
[2017-01-26 05:10] LABS: ANION GAP 10.2 (10.0-19.0); BLOOD UREA NITROGEN 18 mg/dL (6-24); CALCIUM 7.7 mg/dL (8.5-10.5); CHLORIDE 102 mMol/L (96-110); CO2 26 mMol/L (22-32); CREATININE 0.4 mg/dL (0.5-1.1); ESTIMATED GFR (MDRD EQUATION) > 60; POTASSIUM 4.2 mMol/L (3.7-5.1); SODIUM 134 mMol/L (135-145)
--- NOTE | 2017-01-26 14:37 | NUR ---
I spoke with James BLAKE this am and she states she called and plan is for pt to stay today. I did call Reina and they can take back on Sunday they can not over the weekend due to no pharmacy. I then called James BLAKE back and updated her and Demarco BLAKE did update her two son's. Will continue to follow.
--- NOTE | 2017-01-26 15:05 | NUR ---
Significant Event:VSS, rates pain 3-6/10. Scheduled Tylenol 650mg po at 1400 and Nucynta 50mg po given, last dose at 1030. Reports relief. Dsg to RLE changed per Gilbert PONCE, issac appeared intact, incisions approximated with scant amount of bloody drainage. Pedal pulse +2 to warm leg, sensation intact, dorsal and plantar flex foot. Pt tx with max 2 contact assist/GB/walker, nonskid footwear/immobilizer. Pt needs cues for transfers. Worked with PT/OT today. Lovenox 40mg SQ restarted. Voids per BSC, moderate BM. Nausea early a.m. with Zofran 4mg IV for relief. Ate small amounts of meals. Plan to possibly DC to [facility] on Sunday. Family members updated.
--- NOTE | 2017-01-27 03:53 | NUR ---
Pt 2 assist pivot to commode. Nucenta for pain. CSM's intact. Brace on right leg. NWB to right leg. Pt AOx3. VSS.
[2017-01-27 06:41] LABS: BASOPHIL % 0.2 %; EOSINOPHIL % 0.2 %; HEMATOCRIT 23.6 % (30.0-46.0); IMMATURE GRANULOCYTE # 0.1 K/uL (0.0-0.3); IMMATURE GRANULOCYTE % 1.1 %; LYMPHOCYTE # 1.1 K/uL (0.8-4.0); LYMPHOCYTE % 9.4 %; MCH 31.9 pg (27.0-34.0); MCHC 33.5 gm/dL (32.0-36.5); MCV 95.2 fl (83.0-98.0); MONOCYTE # 1.4 K/uL (0.0-1.0); MONOCYTE % 12.2 %; NEUTROPHIL # (ANC) 9.1 K/uL (1.8-7.8); NEUTROPHIL % 76.9 %; NRBC % 0 /100WBC (0-0.00); PLATELET COUNT 209 K/uL (150-450); RBC 2.48 M/uL (3.00-5.00); RDW-CV 15.9 % (11.9-14.6); WBC 11.8 K/uL (4.0-11.0)
[2017-01-27 06:46] LABS: HEMOGLOBIN 7.9 g/dL (10.0-15.0)
--- NOTE | 2017-01-27 18:00 | NUR ---
Significant Event: A/O x3. HRs 70s-90s, SBPs 100-110s, afebrile. O2 remains >90% on RA. Moderate void and BM today, good appetite. Transfers 2-assist with walker and gaitbelt. Family updated and supportive at the bedside. Follow up:
--- NOTE | 2017-01-27 18:52 | NUR ---
D:I have reveiwed and agreed with charting completed by JONO Mendoza.
--- NOTE | 2017-01-28 01:51 | NUR ---
Pt. alert and oriented x3 - forgetful. 2 assist with non wt. bearing on R) leg. Pivot to bedside commode. Brace and DAVID wrap to leg. Ice to Hip. VSS. Nucenta given at 0030. Regular diet. IV to L) forearm and R) wrist - saline locked. Pt. pleasant and cooperative with cares. Report given to Janell BLAKE for continuation of care.
--- NOTE | 2017-01-28 05:12 | NUR ---
Significant Event: Assumed cares at 0200. Pt has been resting well. Nucynta given last at 0335 for pain rating 5-6/10. CSM WNL to RLE. Joni wrap CDI and immobilizer to RLE. IV's SL'd. Pt is NWB to RLE, pivot transfers with 2 assist. Follow up:
[2017-01-28 06:12] LABS: HEMATOCRIT 25.1 % (30.0-46.0); HEMOGLOBIN 8.3 g/dL (10.0-15.0)
--- NOTE | 2017-01-28 17:08 | NUR ---
Significant Event:Is A/O forgetful at times.Has 2 SL;1 in Lt.anticubital & 1 Rt.arm.Has Rt.leg drsg,lilli wrap,& brace on.Has occ.ice to Rt.hip.Had Nucyenta at 1152.Has been up with walker & 2 assists.Does pretty well.Prob.back to [facility]home tomorrow.Is a DNR.Pleasant. Follow up:
--- NOTE | 2017-01-29 03:56 | NUR ---
Significant Event: Patient using bedpan frequently tonight, forgetful at times. Complaints of both legs being cold, yet neither felt that way. CSM's are good. Nucentya given last at 0350 for pain, rating pain at 5. Will probably discharge back to [facility] today. Follow up: Continue to monitor.
[2017-01-29 04:04] LABS: HEMATOCRIT 25.8 % (30.0-46.0); HEMOGLOBIN 8.9 g/dL (10.0-15.0)
[2017-01-29 05:19] LABS: BASOPHIL % 0.3 %; EOSINOPHIL # 0.1 K/uL (0.0-0.5); EOSINOPHIL % 0.9 %; HEMATOCRIT 26.9 % (30.0-46.0); IMMATURE GRANULOCYTE # 0.1 K/uL (0.0-0.3); IMMATURE GRANULOCYTE % 0.9 %; LYMPHOCYTE # 1.6 K/uL (0.8-4.0); LYMPHOCYTE % 16.5 %; MCH 31.7 pg (27.0-34.0); MCHC 33.5 gm/dL (32.0-36.5); MCV 94.7 fl (83.0-98.0); MONOCYTE # 1.1 K/uL (0.0-1.0); MPV 8.8 fl (9.4-12.4); NEUTROPHIL # (ANC) 6.6 K/uL (1.8-7.8); NEUTROPHIL % 69.4 %; NRBC % 0 /100WBC (0-0.00); PLATELET COUNT 329 K/uL (150-450); RBC 2.84 M/uL (3.00-5.00); RDW-CV 15.4 % (11.9-14.6); WBC 9.5 K/uL (4.0-11.0)
[2017-01-29 05:42] LABS: ALBUMIN 2.2 gm/dL (3.5-5.0); ALK PHOS 64 IU/L (33-138); ALT 19 IU/L (12-78); ANION GAP 14.1 (10.0-19.0); AST 21 IU/L (10-40); BLOOD UREA NITROGEN 12 mg/dL (6-24); CALCIUM 7.6 mg/dL (8.5-10.5); CHLORIDE 106 mMol/L (96-110); CO2 21 mMol/L (22-32); CPK 161 IU/L (21-215); CREATININE 0.5 mg/dL (0.5-1.1); ESTIMATED GFR (MDRD EQUATION) > 60; MAGNESIUM 1.7 mg/dL (1.8-2.6); PHOSPHORUS 2.3 mg/dL (2.5-4.9); POTASSIUM 3.1 mMol/L (3.7-5.1); SODIUM 138 mMol/L (135-145); TOTAL PROTEIN 5.1 g/dL (6.0-8.4)
[2017-01-29 05:44] LABS: TOTAL BILIRUBIN 0.8 mg/dL (0.0-1.5)
--- NOTE | 2017-01-29 06:03 | NUR ---
Patient called around 0415 and was very restless, stated she wanted to get up to the commode. With assistance from another staff member we got her up to the commode. She then stated she was dizzy. Vitals were taken and it was noted that her blood pressure was 73/57 and heart rate was 180's temp normal and 02 sats in the mid 90's. Dr Cole, lighthouse keeper notified and at bedside with crash cart. Stat EKG ordered, and repeat Stat EKG done also. Tele orders and multiple labs, cardiac enzymes. Pressures and heart rate were up and down. 1 liter of NS bolus given and amiodarone 150 mg given also. Patient transferred to PCU for higher level of care per doctor orders.
--- NOTE | 2017-01-29 11:21 | NUR ---
I did speak with Reina this am with [facility] in [place]. I did call her back and left a vm with update and to plan maybe tomorrow for transfer due to going into atrial fib. Will continue to follow and nursing updated.
--- NOTE | 2017-01-29 11:42 | NUR ---
A-SCREENED D/T LOS S/P R)HIP. POSSIBLE D/C TO SNF TOMORROW, PER D/C ROUNDS REPORT HT: 61 IN. WT: 60.9 KG. BMI: 25.3 LABS: NA 138, K+ 3.1, GLU 111, BUN 12, TUBING MACHINE TENDER 0.5, ALB 2.2 MEDS: ZOFRAN, OSCAL, VIT D, COLACE, MVI, METAMUCIL, PRN BOWEL MEDS, DILAUDID. DIET RX: REGULAR. PO INTAKE 25-1005 SINCE ADMIT; AVG IS 76%. EST NUTR NEEDS: 4306-6161 KCALS (25-30 KCALS/KG) 61-73 GM PROTEIN (1.0-1.2 GM/KG) 1 ML FLUID/KCAL D-PT NOT AT NUTRITION RISK; NO NUTRITION DX IDENTIFIED I-CONTINUE W/CURRENT DIET RX M/E-WILL ASSIST NEEDED
--- NOTE | 2017-01-29 16:57 | NUR ---
Patient received as a transfer from at 0530 today for Afib with RVR. Patient on Amiodarone drip per protocol and will transition to po Amiodarone when current bag finishes. She has switched between Afib and SR throughout the day with controlled rates. Room air. She reports that her pain is adequately controlled with po Nucentya. Participated with PT/OT and is toe touch with right foot. Up with 1-2 assist and walker/gait belt. Ortho PA in and changed dressing to R. leg. Leg immobilizer remains to R. leg. Electrolytes replaced today. Plan is to return to SNF on discharge.
--- NOTE | 2017-01-30 05:01 | NUR ---
Significant Event: Patient has been alert/oriented x3. Vital signs have been stable. In/out of atrial fibrillation and sinus rhythm, mostly sinus rhythm. Heart rates have been 70-90's. Continues on amiodarone drip, to be stopped at 0600. Patient has not slept at all throughout the night. She has had great UOP but has been complaining of constipation. She requested rectal Dulcolax and this was given around 0200. Since then she has only had smears. She was using bedpan and around 0400 she wanted to use BSC. This did not go very well as patient was not following commands well. She then experienced a panic attack; patient was hyperventilating and was saying she couldn't breathe--O2 sats were 98% on room air during this event. HR's went to 100-110's. She also accidentally pulled IV out. We transferred patient back to bed and she seemed to calm down a bit. Dr. Falcon notified regarding the event and he ordered 0.5 mg IVP Ativan x1. Otherwise, right hip dressing remains dry/intact and right leg immobilizer in place. Patient transfers poorly with 2PA assist, gait belt, and walker. Toe-touch weight bearing on right leg. Follow up: Dismiss back to [facility] in [place] today?
[2017-01-30 05:20] LABS: ALBUMIN 2.2 gm/dL (3.5-5.0); TOTAL BILIRUBIN 0.9 mg/dL (0.0-1.5); TOTAL PROTEIN 5.1 g/dL (6.0-8.4)
[2017-01-30 06:42] LABS: ANION GAP 12.7 (10.0-19.0); BLOOD UREA NITROGEN 9 mg/dL (6-24); CALCIUM 7.6 mg/dL (8.5-10.5); CHLORIDE 103 mMol/L (96-110); CO2 23 mMol/L (22-32); CREATININE 0.5 mg/dL (0.5-1.1); ESTIMATED GFR (MDRD EQUATION) > 60; POTASSIUM 3.7 mMol/L (3.7-5.1); SODIUM 135 mMol/L (135-145)
--- NOTE | 2017-01-30 14:16 | NUR ---
Patient admitted on 01/24/17 for removal of hardware R. hip and ORIF of R. femur. Patient went into Afib with RVR on 01/29/17 0400 and converted back to sinus rhthym with Amiodarone drip. Patient is being discharged on po Amiodarone. Patient is A/o x 3 and room air. Up with walker/gait belt and 1-2 assist. Toe touch weight bearing to R. leg/foot. Knee immobilizer to remain on R. leg until dc'd by MD. Voids per BSC/Toilet. Regular diet with good appetite. Dressing to R. leg to be changed per MD orders. Last pain medication was Nucynta x 2 tabs this morning. Large BM this morning. Patient's sons at the bedside and aware of transfer to SNF.
--- NOTE | 2017-01-30 14:34 | NUR ---
Physicians have rounded and pt can dc to [facility] for skilled stay. Called Reina at [facility] and they are on their way to get her, gave nurse number to call report.
== END 2017-01-30 14:45 | DRG 480 ==
LOC: GPCU 01-24 07:05 → G3N 01-24 07:05 → GPCU 01-29 05:38
PROVIDERS: Hospitalist; Internal Medicine; Nurse Practitioner Acute Care; Physician Assistant Medical; ADMIT Orthopaedic Surgery Adult Reconstructive Orthopaedic Surgery
PROC: 30233N1 Transfusion of Nonautologous Red Blood Cells into Peripheral Vein, Percutaneous Approach (ICD-10-PCS; principal; 2017-01-24)
PROC: 0YP90JZ Removal of Synthetic Substitute from Right Lower Extremity, Open Approach (ICD-10-PCS; principal; 2017-01-24)
PROC: 0QSB04Z Reposition Right Lower Femur with Internal Fixation Device, Open Approach (ICD-10-PCS; principal; 2017-01-24)
DX: S72.454 Nondisplaced supracondylar fracture without intracondylar extension of lower end of right femur (principal); J96.01 Acute respiratory failure with hypoxia; D62 Acute posthemorrhagic anemia; Z79.82 Long term (current) use of aspirin; I10 Essential (primary) hypertension; I48.0 Paroxysmal atrial fibrillation; M19.90 Unspecified osteoarthritis, unspecified site
CPT/HCPCS: C1713; J0282; J0690; J1100; J1170; J1650; J2001; J2060; J2405; J3010; J3475; J7030; J7040; J7060; P9016; P9045